=== PATIENT | male | born 1965 | race Caucasian/White ===

== ENCOUNTER 2021-07-20 10:56 | Outpatient (CLI) | payer OTHER, SELFPAY ==
[2021-07-20 18:49] LABS: Add Urine Microscopic? YES; Appearance Urine Clear (Clear); Bilirubin Urine Negative (Negative); Blood Urine Negative (Negative); Color Urine Yellow (Yellow); Glucose Urine UA Negative (Negative); Ketones Urine Negative (Negative); Leukocyte Esterase Ur Negative LEU/UL (Negative); Mucus Urine Rare /lpf; Nitrate Urine Negative (Negative); Protein Urine Negative (Negative); RBC Urine 0-2 /hpf (0-2); Specific Grav Ur 1.015 (1.001-1.035); Urobilinogen Urine Negative mg/dL (<2.0); WBC Urine 0-3 /hpf
[2021-07-20 19:18] LABS: CRP 1.2 mg/dL (<1.0)
[2021-07-20 19:25] LABS: Creatinine Urine 112.5 mg/dL
[2021-07-20 19:27] LABS: MALB Creatinine Ratio 13.4 mg/g (0-30); Microalbumin Urine Random 15.1 mg/L (0-16.7)
[2021-07-20 19:41] LABS: Free T4 Free Thyroxine 1.04 ng/mL (0.78-2.19); Vitamin D 25 Hydroxy 51.5 ng/mL
[2021-07-20 20:22] LABS: Folic Acid > 20.0 ng/mL (2.76->20)
[2021-07-23 07:06] LABS: C-Peptide 3.72 ng/mL (0.80-3.85); FSH 9.3 mIU/mL (1.6-8.0); Prolactin 6.8 ng/mL (***); Triiodothyronine T3 Free 3.2 pg/mL (2.3-4.2)
[2021-07-23 11:41] LABS: T3 Reverse 13 ng/dL (8-25)
[2021-07-24 13:13] LABS: Testosterone Free 41.4 pg/mL (35.0-155.0); Testosterone Total 235 ng/dL (250-1100)
[2021-07-25 18:11] LABS: Estradiol, Ultrasensitive 22 pg/mL (< OR = 29)
== END 2021-07-20 10:57 | disposition home or self-care (01) ==
LOC: ANHBWCLAB 10:58
PROVIDERS: PCP Family Medicine; Visit Provider Family Medicine
DX: B35.1 Tinea unguium (principal); E66.9 Obesity, unspecified; G47.30 Sleep apnea, unspecified; K21.9 Gastro-esophageal reflux disease without esophagitis; R68.89 Other general symptoms and signs; R73.9 Hyperglycemia, unspecified; Z79.899 Other long term (current) drug therapy; Z82.62 Family history of osteoporosis; Z96.612 Presence of left artificial shoulder joint; N99.89 Other postprocedural complications and disorders of genitourinary system; G25.81 Restless legs syndrome; N20.2 Calculus of kidney with calculus of ureter
CPT/HCPCS: 36415; 81001; 82043; 82306; 82607; 82670; 82746; 83001; 84146; 84402; 84403; 84439; 84443; 84481; 84482; 84681; 86140

== ENCOUNTER 2021-08-23 11:48 | Outpatient (RCR) | payer OTHER, SELFPAY ==
[2021-08-23] MEDS: ACETAMINOPHEN 325 MG TABLET 650 MG PO (12:06)
[2021-08-23] MEDS: diphenhydrAMINE HCl CAP 25 MG CAPSULE PO (12:07)
[2021-08-23] MEDS: FAMOTIDINE 20 MG TABLET PO (12:07)
[2021-08-23 12:21] VITALS: BP 156/80; PULSE 83; RESP 18; TEMP 36.3; O2SAT 97
[2021-08-23 13:35] VITALS: BP 140/72; PULSE 78; RESP 20; O2SAT 98
--- NOTE | 2021-08-24 14:48 | PC.NURSE ---
Called patient to follow-up regarding COVID antibody infusion. Patient states he is feeling well today and denies any side effects at this time.
== END 2021-08-24 10:03 ==
LOC: AMCINF 11:48
PROVIDERS: PCP Family Medicine; Referring Provider Family Medicine; Visit Provider Internal Medicine Hematology & Oncology
DX: Z23 Encounter for immunization (principal); U07.1 COVID-19; I25.10 Atherosclerotic heart disease of native coronary artery without angina pectoris; E11.9 Type 2 diabetes mellitus without complications
CPT/HCPCS: A9270; M0245; Q0245

== ENCOUNTER 2021-09-20 07:47 | Outpatient (CLI) | payer OTHER, SELFPAY ==
[2021-09-20 19:37] LABS: Hematocrit 44.6 % (42.0-52.0); Hemoglobin 14.6 g/dL (14.0-18.0); Mean Corpuscular HGB Conc 32.7 g/dl (32-36); Mean Corpuscular Hemoglobin 30.2 pg (26-34); Mean Corpuscular Volume 92.1 fl (80-100); Platelet Count Result 256 k/mm3 (150-375); Red Blood Count 4.84 M/mm3 (4.6-6.20); Red Cell Distribution Width 13.2 % (11.5-14.5); White Blood Count 7.4 K/mm3 (4.5-10.0)
[2021-09-20 19:44] LABS: Alanine Aminotransferase 42 U/L (4-50); Albumin Level 4.6 g/dL (3.5-5.1); Alkaline Phosphatase 66 U/L (38-126); Anion Gap 11 mmol/L (8-16); Aspartate Amino Transferase 34 U/L (17-59); Bilirubin,Total 0.8 mg/dL (0.2-1.3); Blood Urea Nitrogen 13 mg/dL (9-20); Calcium 9.8 mg/dL (8.4-10.2); Carbon Dioxide 24 mmol/L (22-30); Chloride 98 mmol/L (98-107); Cholesterol 197 mg/dL (0-200); Estimated Glomerular Filt Rate 57; Glucose 86 mg/dL (65-110); HDL Direct 32 mg/dL; Potassium 3.8 mmol/L (3.4-5.0); Sodium 133 mmol/L (137-145); Triglycerides 170 mg/dL (<150)
[2021-09-20 19:55] LABS: LDL Cholesterol Direct 141 mg/dL
[2021-09-20 20:12] LABS: Prostate Specific Antigen 0.3 ng/mL (< OR = 4.0)
[2021-09-23 14:47] LABS: Testosterone Free 50.4 pg/mL (35.0-155.0); Testosterone Total 241 ng/dL (250-1100)
== END 2021-09-20 07:48 | disposition home or self-care (01) ==
PROVIDERS: PCP Family Medicine; Visit Provider Family Medicine
DX: E78.5 Hyperlipidemia, unspecified (principal); R79.89 Other specified abnormal findings of blood chemistry
CPT/HCPCS: 36415; 80053; 80061; 83036; 84153; 84402; 84403; 85027; G0103

== ENCOUNTER 2021-11-29 00:03 | Emergency (ER) | payer OTHER, SELFPAY ==
--- NOTE | ~2021-11-29 | CT_ITS ---
EXAMINATION: CT abdomen pelvis wo con EXAM DATE: 11/29/2021 00:54 INDICATION: Flank pain, RLQ Pain X 3 Days. TECHNIQUE: Spiral CT of the abdomen and pelvis was performed without contrast. Axial, coronal and sag ittal images were reviewed. The dose-length product (DLP) for this examination was 780.19 mGy-cm. T he exposure was tailored according to patient size (auto mA exposure control), and iterative reconstr uction (ASIR) was used as additional dose reduction technique. Comparison is made to prior examinatio n from 10/29/2019. FINDINGS: There is a 5 mm stone in the distal aspect of the right ureter, 1 cm from the ureterovesicu lar junction. There is mild right-sided hydroureteronephrosis. Additional bilateral nephrolithiasis, with a 5 mm right inferior calyceal stone and multiple other punctate bilateral calyceal stones. The prostate is unremarkable. The bladder is unremarkable. The liver, spleen, adrenal glands and pancr eas are unremarkable. Gallbladder is unremarkable. No biliary obstruction. There is no retroperito buster or pelvic lymphadenopathy. The appendix is normal. There is moderate sigmoid colonic diverticulosis. There is no adjacent infla mmatory change to suggest diverticulitis. The stomach and small bowel are unremarkable. There is ex pected amount of colonic stool. No free intraperitoneal gas. The heart is normal in size. There are no pericardial or pleural effusions. The lung bases are unremarkable. There are no osteoblastic or osteolytic lesions identified. There is chronic bilateral L5 spondylolysis without spondylolisthe sis. IMPRESSION: 1. Right distal ureteral 5 mm stone, mild hydroureteronephrosis. consultants would appreciate bas sherie KUB. 2. Bilateral nephrolithiasis. 3. Sigmoid diverticulosis. 4. L5 spondylolysis. Reviewed, dictated and finalized at location A. 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 Right distal ureteral 5 mm stone, mild hydroureteronephrosis. 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 2. Bilateral nephrolithiasis. 3. Sigmoid diverticulosis. 4. L5 spondylolysis.
[2021-11-29 00:17] VITALS: BP 156/86; PULSE 96; RESP 18; TEMP 37.1; O2SAT 97
[2021-11-29 00:43] LABS: Basophils Percent Auto 0.4 % (0.2-1.2); Eosinophils Absolute Auto 0.1 K/mm3 (0-0.3); Eosinophils Percent Auto 1.5 % (0-4.4); Hematocrit 44.2 % (42.0-52.0); Immature Granulocyte Absolute 0.02 K/mm3 (0.00-0.031); Immature Granulocyte Percent A 0.2 % (0-0.5); Lymphocytes Percent Auto 20.7 % (18.3-44.2); Mean Corpuscular HGB Conc 33.9 g/dl (32-36); Mean Corpuscular Hemoglobin 30.2 pg (26-34); Mean Corpuscular Volume 89.1 fl (80-100); Mean Platelet Volume 9.5 fl (7.4-10.4); Monocytes Absolute Auto 0.6 K/mm3 (0.1-0.6); Monocytes Percent Auto 7.7 % (2.6-8.5); Neutrophils Absolute Auto 5.7 K/mm3 (1.3-6.7); Neutrophils Percent Auto 69.5 % (45.5-73.1); Platelet Count Result 258 k/mm3 (150-375); Red Blood Count 4.96 M/mm3 (4.6-6.20); Red Cell Distribution Width 12.7 % (11.5-14.5); White Blood Count 8.2 K/mm3 (4.5-10.0)
[2021-11-29 00:55] LABS: Alanine Aminotransferase 41 U/L (4-50); Albumin Level 4.2 g/dL (3.5-5.1); Alkaline Phosphatase 54 U/L (38-126); Anion Gap 11 mmol/L (8-16); Aspartate Amino Transferase 38 U/L (17-59); Bilirubin,Total 0.4 mg/dL (0.2-1.3); Blood Urea Nitrogen 16 mg/dL (9-20); Calcium 9.4 mg/dL (8.4-10.2); Carbon Dioxide 24 mmol/L (22-30); Chloride 104 mmol/L (98-107); Estimated CRCL calculation 83 ml/min; Estimated Glomerular Filt Rate > 60; Glucose 171 mg/dL (65-110); Potassium 3.4 mmol/L (3.4-5.0); Sodium 139 mmol/L (137-145)
--- NOTE | 2021-11-29 01:00 | ED.GENADULT ---
HPI - General Adult General Chief complaint: Urogenital-Male Stated complaint: R flank pain Time Seen by Provider: 11/29/21 00:22 Source: patient, RN notes reviewed and old records reviewed Limitations: no limitations History of Present Illness HPI narrative: 56-year-old male with a history of kidney stones presents to the emergency department complaining of right lower quadrant pain that has been intermittent since . Patient states the pain acutely worsened at 10 PM last night. Patient does describe associated nausea without vomiting. Patient has previously had follow-up with Dr. Mixon. Suspects his last kidney stone was 2 years ago Related Data Home Medications Medication Instructions Recorded Confirmed aspirin 81 mg tablet,delayed 81 mg PO DAILY 11/05/19 12/03/21 release multivitamin 1 tablet PO DAILY 11/05/19 12/03/21 Allergies Allergy/AdvReac Type Severity Reaction Status Date / Time No Known Allergies Allergy Verified 12/03/21 09:03 Review of Systems Review of Systems: CONSTITUTIONAL: Denies fever, chills, or sweats. EYES: Denies visual changes, redness, or discharge. ENT: Denies rhinorrhea, congestion, sore throat, or otalgia. CARDIOVASCULAR: Denies chest pain, palpitations, or edema. RESPIRATORY: Denies cough or dyspnea. GASTROINTESTINAL: RLQ pain, associated n/v GENITOURINARY: Denies dysuria or hematuria. SKIN: Denies rash or itching. MUSCULOSKELETAL: Denies back pain, joint pain, or myalgia. NEUROLOGIC: Denies headache, numbness, or weakness. All systems reviewed & are unremarkable except as noted in HPI and below PMFSH Past Medical History Medical History Controlled type 2 diabetes mellitus without complication Erectile dysfunction GERD (gastroesophageal reflux disease) Kidney stones Seasonal allergies Sleep apnea Umbilical hernia Surgical History Surgical History History of left shoulder replacement (~2017) History of lithotripsy (~2019) Family History Family History Father Family history of malignant neoplasm Other Family history of kidney stones Hypertension Social History Social History Smoking status: Never smoker Second hand tobacco smoke exposure: Yes Alcohol intake: current Drinks per week: 6 Substance use: never Substance use type: does not use Additional living arrangements comments: and Mother Gender identity (if verbalized by the patient): Male Sexual Orientation (if Verbalized by the Patient): Straight or Heterosexual Spiritual care concerns: No Agree to blood products: Yes Exam Narrative: APPEARANCE: Well appearing, no pain, no distress, well-nourished. HEAD: normocephalic, atraumatic. EYES: PERRLA/EOMI, conjunctivae clear. NOSE: Normal no drainage RESPIRATORY: Airway patent, respirations nonlabored. Clear to auscultation bilaterally, no rales, rhonchi, wheezing. CARDIOVASCULAR: Regular rate and rhythm without murmurs rubs or gallops. ABDOMINAL: RLQ tenderness to palpation MUSCULOSKELETAL: Moves all extremities. Strength/ROM intact, No edema, No calf tenderness. NEURO: Alert. Cranial nerves II through XII intact. Good gait. Good coordination SKIN: Warm, dry. Normal Color PSYCHIATRIC: Normal affect/mood. Course Reevaluation(s) Reevaluation #1: Patient was updated on the results of his labs and CT scan. CT scan did show evidence of a stone. Urine showed evidence of blood but no evidence of an underlying urinary tract infection. On reevaluation patient states his pain is significantly improved. Patient is interested in going home and was educated on reasons to return to the emerge department. Patient will have close follow-up with his urologist. All questions concerns were addressed. Patient was in no distress
[2021-11-29] MEDS: HYDROmorphone HCL INJ (*CRX) 1 MG/ML SYR IV PUSH (01:04)
[2021-11-29] MEDS: ONDANSETRON INJ 4 MG/2 ML VIAL IV PUSH (01:04)
[2021-11-29 01:05] LABS: Add Urine Microscopic? YES; Appearance Urine Clear (Clear); Bacteria Urine Trace /hpf; Bilirubin Urine Negative (Negative); Blood Urine 2+ (Negative); Color Urine Yellow (Yellow); Glucose Urine UA Negative (Negative); Ketones Urine Negative (Negative); Leukocyte Esterase Ur Negative LEU/UL (Negative); Mucus Urine Rare /lpf; Nitrate Urine Negative (Negative); Protein Urine Negative (Negative); RBC Urine 51-75 /hpf (0-2); Specific Grav Ur 1.015 (1.001-1.035); Squamous Epithelial Cell Urine Rare /hpf (Few); Urobilinogen Urine Negative mg/dL (<2.0)
[2021-11-29] MEDS: TAMSULOSIN HCL 0.4 MG CAPSULE PO (01:51)
[2021-11-29] MEDS: HYDROcodone/acetaminophen (*CRX) 5-325 MG TABLET 1 TAB PO (02:16)
[2021-11-29 02:30] VITALS: BP 147/82; PULSE 87; RESP 16; TEMP 36.9; O2SAT 99
== END 2021-11-29 02:43 | disposition home or self-care (01) ==
PROVIDERS: Emergency Provider Emergency Medicine; PCP Family Medicine
DX: N13.2 Hydronephrosis with renal and ureteral calculous obstruction (principal); E11.9 Type 2 diabetes mellitus without complications; K21.9 Gastro-esophageal reflux disease without esophagitis; G47.30 Sleep apnea, unspecified; Z87.442 Personal history of urinary calculi; Z96.612 Presence of left artificial shoulder joint; K57.30 Diverticulosis of large intestine without perforation or abscess without bleeding; M43.06 Spondylolysis, lumbar region; Z79.82 Long term (current) use of aspirin; Z79.899 Other long term (current) drug therapy
CPT/HCPCS: 36415; 74176; 80053; 81001; 85025; 87086; 96374; 96375; 99284; A9270; J1170; J2405

== ENCOUNTER 2021-12-03 02:18 | Day surgery (SDC) | payer OTHER, SELFPAY ==
[2021-12-01 12:51] VITALS: BMI 37.6
--- NOTE | 2021-12-01 13:01 | PC.NURSE ---
Report to the Outpatient Waiting Room, entrance under the green pavilion located off [facility], at time 0730 on date 12/03/21. OR Time: 0930. - You and your visitor will be asked a series of questions to screen for COVID 19 for your protection. - A mask is required within the hospital. One visitor will be allowed to accompany the patient into the hospital. Patients visitor will be instructed to remain with patient at all times or leave the building. We will allow the visitor to come back to the postoperative area when patient is ready. Preoperative COVID Testing Requirements: E-MAILING CARD No COVID Test needed if: (proof is required; if not received patient will have Rapid Test prior to entry) - Patient has received COVID Vaccine at least 14 days prior to procedure date or - Patient has positive COVID test result within last 90 days of surgery date. COVID Test needed if above criteria is not met Patients may have clear liquids (water, carbonated beverages, clear teas, apple juice) until 3 hours prior to surgery with a maximum of 20 ounces. - No food from midnight until time of surgery Take the following medications with a SIP of water the morning of surgery: NONE Medications to discontinue per physician: VITAMINS Date to take last dose: NONE UNTIL AFTER SURGERY STOP IBUPROFEN AND ASPIRIN PER DR. CHO Please no make-up, nail swazi, hairspray, perfume, deodorant, or body powder the day of surgery. No jewelry (including any body piercings) or valuables the day of surgery, leave them at home. Please take a shower or bath the night before, or the morning of, surgery with an antibacterial soap. Wear comfortable, loose fitting clothing. - Jewelry must be removed prior to entering the operating room. Rings and piercings that are not removed may be cut off. - The hospital will not accept responsibility for valuables. - Please leave all valuables, including medications, at home the day of surgery. If you are going home after surgery, a licensed pick up driver must drive you home. - NO public transportation without another adult. - We recommend that an adult stay with you for 24 hours following discharge. - We also recommend that you do not drive, make important decision, drink alcoholic beverages, or take any drugs that were not prescribed by your health care provider for at least 24 hours after your discharge time. Follow any additional instructions given to you from your surgeon. Telephone instructions given to LILLIAN ARROYO and asked if any additional questions and then verbalized understanding. Patient advised to call surgeon office or pre surgery nurse liaison [phone] if any additional questions.
[2021-12-03] VITALS (9 sets, daily range): BP systolic 125–153; BP diastolic 81–97; PULSE 76–91; RESP 15–18; TEMP 36.3–36.5; O2SAT 94–98
--- NOTE | ~2021-12-03 | XR_ITS ---
EXAMINATION: XR abdomen/kub 1V DATE: 12/03/2021 07:45 INDICATION: Right ureteral stone. TECHNIQUE: A supine view of the abdomen on 2 radiographs was obtained. COMPARISON: CT abdomen and pelvis 11/29/2021 FINDINGS: There are no dilated loops of bowel. There are phleboliths in the pelvis. There is a 6 mm s tone in right kidney lower pole. IMPRESSION: 1. 6 mm right kidney stone. Reviewed, dictated and finalized at location A. OGRAPHY SUPERVISOR IMPRESSION: 1. 6 mm right kidney stone.
--- NOTE | 2021-12-03 06:04 | ECG_ITS ---
Measurements Intervals [place] Rate: 85 P: 56 CO: 190 QRS: 10 QRSD: 73 T: 39 QT: 346 QTc: 413 Interpretive Statements SINUS RHYTHM INCOMPLETE RIGHT BUNDLE BRANCH BLOCK BASELINE ARTIFACT- I, III, AVR, AVL, AVF, V1-V2 BORDERLINE ECG Electronically Signed On 12-03-2021 8:25:56 CHISEL MORTISER OPERATOR by José Manuel Martinez D.O.
--- NOTE | 2021-12-03 06:48 | WPDHPUPDATE1 ---
History and Physical Update Update Date/Time: 12/03/21 06:48 History and Physical has been reviewed, including an updated exam of the patient. There are NO changes in the patient's condition. Risks, benefits, and alternatives have been discussed and questions answered. Patient agrees to proceed with procedure.
--- NOTE | 2021-12-03 07:55 | WPDANESEPPF ---
Anes - Initial Pre Proc Eval Procedure: Operation Date: 12/03/21 09:30 Proposed Procedures p Cystoscopy, Right Ureteroscopy, Right Retrograde Pyelogram, Stone Extraction, Stent Placement, - Tevin Mixon MD s Possible Holmium Laser Procedure - Tevin Mixon MD Date/Time: 12/03/21 07:55 Surgeon: Tevin Mixon MD Pre Op Diagnosis: right ureteral kidney stone Patient Data Age: 56 Gender: M Height: 1.8 m Weight: 122.47 kg Allergies Allergy/AdvReac Type Severity Reaction Status Date / Time No Known Allergies Allergy Verified 12/01/21 12:47 Home Medications Medication Instructions Recorded Confirmed Type aspirin 81 mg tablet,delayed 81 mg PO DAILY 11/05/19 12/01/21 History release multivitamin 1 tablet PO DAILY 11/05/19 12/01/21 History sildenafil 100 mg tablet See Rx Instructions .ROUTE 11/20/20 12/01/21 Rx .COMPLEX #10 tablet ibuprofen 800 mg tablet 800 mg PO TID PRN #90 tablet 05/06/21 12/01/21 Rx syringe with needle, safety 3 mL #12 ea 08/09/21 09/29/21 Rx 25 gauge x 1 needle (disp) 18 G 18 gauge x 1 #100 ea 09/20/21 09/29/21 Rx testosterone cypionate 200 mg/mL 200 mg IM Q14D #10 ml 09/29/21 12/01/21 Rx intramuscular oil semaglutide 1 mg/dose (4 mg/3 mL) 1 mg SUBCUT WEEKLY 90 Days #9.75 ml 10/14/21 12/01/21 Rx subcutaneous pen injector needle (disp) 25 gauge 25 gauge x #12 ea 11/07/21 Rx 1 hydrocodone-acetaminophen 1 tablet PO Q8H PRN #14 tablet 11/29/21 12/01/21 Rx ondansetron 4 mg PO Q6H PRN #14 tablet 11/29/21 12/01/21 Rx tamsulosin [Flomax] 0.4 mg PO DAILY 5 Days #5 cap 11/29/21 12/01/21 Rx Patient hx anesthesia problems: none Family hx anesthesia problems: none Results Review: All pre-operative results and documents have been reviewed as part of the pre-operative evaluation. [facility] Past Medical History Medical History Controlled type 2 diabetes mellitus without complication Erectile dysfunction GERD (gastroesophageal reflux disease) Kidney stones Seasonal allergies Sleep apnea Umbilical hernia Surgical History Surgical History History of left shoulder replacement (~2017) History of lithotripsy (~2019) Family History Family History Father Family history of malignant neoplasm Other Family history of kidney stones Hypertension Social History Social History Smoking status: Never smoker Second hand tobacco smoke exposure: Yes Alcohol intake: current Drinks per week: 6 Substance use: never Substance use type: does not use Living arrangements: with family Additional living arrangements comments: and Mother Gender identity (if verbalized by the patient): Male Sexual Orientation (if Verbalized by the Patient): Straight or Heterosexual Spiritual care concerns: No Agree to blood products: Yes Anes - Eval Final PreProcedure Day of Procedure 12/03/21 07:55 Patient weight: obese Heart: regular rate and rhythm Airway: Mallampati scale class III Neurological: alert and oriented Last oral intake: >/= 8 hours ASA classification: III Emergent: no Anesthetic plan: proceed Anesthesia type and monitoring: general LMA and standard monitoring Results Review: All pre-operative results and documents have been reviewed as part of the pre-operative evaluation. Informed Consent: The patient's anesthetic plan and its attendant risks and benefits were discussed with the patient/family/POA. Questions were solicited and answers provided to the satisfaction of the patient/family/POA.
[2021-12-03] MEDS: LACTATED RINGERS 1,000 ML 30 ML IV CONT ×2 (08:15→10:55)
[2021-12-03 08:36] LABS: Glucose Point of Care 117 mg/dl (65-105)
[2021-12-03 08:52] LABS: INR 1.1; Prothrombin Time 13.6 Seconds (11.1-14.7)
[2021-12-03 08:53] LABS: Partial Thromboplastin Time 33.6 SECONDS (22.3-36.8)
[2021-12-03] MEDS: ceFAZolin 3 GM/D5W 100 ML 100 ML IVPB (09:57)
--- NOTE | 2021-12-03 10:23 | W.PM.PROC2 ---
Procedure Note - Detailed Date of Procedure 12/03/21 Pre-op Diagnosis Right distal ureteral stone Right renal stone Post-op Diagnosis same Procedure Performed 1. Cystoscopy, right ureteroscopy with stone extraction 2. Right ESWL Surgeon Tevin Mixon MD Anesthesia general Description of Procedure The patient was brought to the operative suite where he is prepped and draped in a routine sterile fashion while in the dorsal lithotomy position after the uneventful induction of a general LMA anesthetic. A 19F rigid cystoscope was placed in the bladder. There are no urethral strictures. His prostatic urethra measures, approximately, 2cm with no median lobe enlargement. The bladder mucosa was endoscopically normal without hyperemia or neoplasm. There was a single, orthotopic ureteral orifice bilaterally. A 0.035 glidewire was advanced into the right renal pelvis under fluoroscopy. The distal ureter was dilated with an 8F/10F ureteral dilator. Ureteroscopy was undertaken with a short, tapered, semi-rigid ureteroscope and the stone was extracted with ease using a 1.9F Escape disposable stone basket. Due to the ease of this manipulation I opted not to place a ureteral stent. He was then placed in the supine position on the Dornier lithotripsy table. The focal point of the lithotripter was placed at a 6mm right renal calculus. A total of 2500 shocks were delivered at a power setting of 4. There appeared to be good fragmentation of the stone. The patient tolerated the procedure well and was taken to the recovery room in good condition. Drains No Packing No Pathology none sent Complications No immediate complications Condition stable Disposition PACU
[2021-12-03] MEDS: KETOROLAC 30 MG/ML VIAL (*BKC) IV PUSH (10:49)
[2021-12-03 11:17] LABS: Glucose Point of Care 104 mg/dl (65-105)
== END 2021-12-03 13:06 | disposition home or self-care (01) ==
PROVIDERS: Visit Provider Urology
PROC: (CPT 52352; principal; 2021-12-03 09:30)
PROC: (CPT 50590; 2021-12-03 09:30)
DX: N20.2 Calculus of kidney with calculus of ureter (principal); E11.9 Type 2 diabetes mellitus without complications; K21.9 Gastro-esophageal reflux disease without esophagitis; G47.30 Sleep apnea, unspecified; N52.9 Male erectile dysfunction, unspecified; Z79.82 Long term (current) use of aspirin; Z79.899 Other long term (current) drug therapy; E66.9 Obesity, unspecified; Z68.35 Body mass index [BMI] 35.0-35.9, adult
CPT/HCPCS: 50590; 52352; 36415; 74018; 82365; 82948; 85610; 85730; 88300; 93005; A9270; C1769; J0690; J1885; J2250; J2405; J2704; J3010; J7120; Q9966

== ENCOUNTER 2022-05-04 07:28 | Outpatient (CLI) | payer OTHER, SELFPAY ==
[2022-05-04 19:42] LABS: Basophils Percent Auto 0.6 % (0.2-1.2); Eosinophils Absolute Auto 0.2 K/mm3 (0-0.3); Eosinophils Percent Auto 2.1 % (0-4.4); Hematocrit 48.7 % (42.0-52.0); Hemoglobin 15.5 g/dL (14.0-18.0); Immature Granulocyte Absolute 0.02 K/mm3 (0.00-0.031); Immature Granulocyte Percent A 0.3 % (0-0.5); Lymphocytes Absolute Auto 1.78 K/mm3 (0.9-3.2); Lymphocytes Percent Auto 24.5 % (18.3-44.2); Mean Corpuscular HGB Conc 31.8 g/dl (32-36); Mean Corpuscular Hemoglobin 29.7 pg (26-34); Mean Corpuscular Volume 93.3 fl (80-100); Mean Platelet Volume 10.1 fl (7.4-10.4); Monocytes Absolute Auto 0.6 K/mm3 (0.1-0.6); Monocytes Percent Auto 8.8 % (2.6-8.5); Neutrophils Absolute Auto 4.6 K/mm3 (1.3-6.7); Neutrophils Percent Auto 63.7 % (45.5-73.1); Platelet Count Result 247 k/mm3 (150-375); Red Blood Count 5.22 M/mm3 (4.6-6.20); Red Cell Distribution Width 13.4 % (11.5-14.5); White Blood Count 7.3 K/mm3 (4.5-10.0)
[2022-05-04 19:50] LABS: Alanine Aminotransferase 45 U/L (6-50); Albumin Level 4.4 g/dL (3.5-5.1); Alkaline Phosphatase 58 U/L (38-126); Anion Gap 9 mmol/L (8-16); Aspartate Amino Transferase 57 U/L (17-59); Bilirubin,Total 0.6 mg/dL (0.2-1.3); Blood Urea Nitrogen 19 mg/dL (9-20); Calcium 9.9 mg/dL (8.4-10.2); Carbon Dioxide 27 mmol/L (22-30); Chloride 103 mmol/L (98-107); Estimated Glomerular Filt Rate 57; Glucose 110 mg/dL (65-110); Potassium 4.2 mmol/L (3.4-5.0); Sodium 139 mmol/L (137-145)
[2022-05-04 20:05] LABS: Hemoglobin A1C 5.8 % (<5.7)
[2022-05-04 20:19] LABS: Prostate Specific Antigen 0.5 ng/mL (< OR = 4.0)
[2022-05-04 20:38] LABS: Microalbumin Urine Random 10.1 mg/L (0-16.7)
[2022-05-04 20:40] LABS: Creatinine Urine 103.3 mg/dL; MALB Creatinine Ratio 9.8 mg/g (0-30)
[2022-05-08 15:55] LABS: Testosterone Total 630 ng/dL (250-1100)
[2022-05-11 16:12] LABS: Estrogen 393.1 pg/mL (60-190)
== END 2022-05-04 07:29 | disposition home or self-care (01) ==
LOC: ANHBWCLAB 07:29
PROVIDERS: PCP Family Medicine; Visit Provider Family Medicine
DX: R79.89 Other specified abnormal findings of blood chemistry (principal); E11.9 Type 2 diabetes mellitus without complications
CPT/HCPCS: 36415; 80053; 82043; 82672; 83036; 84153; 84402; 84403; 85025

== ENCOUNTER 2022-08-30 08:00 | Outpatient (NON) | payer OTHER, SELFPAY | END 2022-08-30 08:01 | disposition home or self-care (01) | LOC: ANHLAB 08-31 08:16 | PROVIDERS: PCP Family Medicine; Visit Provider Internal Medicine Gastroenterology | DX: K63.5 Polyp of colon (principal) | CPT/HCPCS: 88305 ==

== ENCOUNTER 2022-08-30 10:45 | Day surgery (SDC) | payer OTHER, SELFPAY ==
[2022-04-28 12:09] VITALS: BMI 35.0
[2022-08-17 10:26] VITALS: BMI 37.8
[2022-08-30 11:00] VITALS: BP 158/113; PULSE 99; RESP 20; TEMP 37.1; O2SAT 97
[2022-08-30 11:19] LABS: Glucose Point of Care 97 mg/dl (65-105)
--- NOTE | 2022-08-30 12:12 | WPDANESEPPF ---
Anes - Initial Pre Proc Eval Procedure: Operation Date: 08/30/22 12:30 Proposed Procedures p Screening Colonoscopy - Corona Rice MD Date/Time: 08/30/22 12:12 Surgeon: Corona Rice MD Pre Op Diagnosis: Neoplasm Screening Patient Data Age: 57 Gender: M Height: 1.8 m Weight: 118.1 kg Allergies Allergy/AdvReac Type Severity Reaction Status Date / Time No Known Allergies Allergy Verified 08/30/22 11:04 Home Medications Medication Instructions Recorded Confirmed Type aspirin 81 mg tablet,delayed 81 mg PO DAILY 11/05/19 08/30/22 History release (Adult Low Dose Aspirin) multivitamin 1 tablet PO DAILY 11/05/19 08/30/22 History sildenafil 100 mg tablet See Rx Instructions .Route 11/20/20 08/17/22 Rx .COMPLEX #10 tabs syringe with needle, safety 3 mL #12 ea 08/09/21 12/03/21 Rx 25 gauge x 1 (BD Integra Syringe) needle (disp) 18 G 18 gauge x 1 #100 ea 09/20/21 12/03/21 Rx (BD Regular Bevel [place]) semaglutide 1 mg/dose (4 mg/3 mL) 1 mg (0.75 mL) subcut WEEKLY 3 10/14/21 08/30/22 Rx subcutaneous pen injector (Ozempic) months #9.75 mL needle (disp) 25 gauge 25 gauge x #12 ea 11/07/21 12/03/21 Rx 1 (BD PrecisionGlide) pseudoephedrine-guaifenesin ER 120 1 tablet PO Q12H PRN cold symptoms 04/05/22 08/30/22 Rx mg-1,200 mg tab,extend release #20 tabs 12hr (Mucinex D Maximum Strength) topiramate 25 mg tablet 25 mg PO DAILY #90 tabs 06/08/22 08/30/22 Rx ibuprofen 800 mg tablet 800 mg PO TID PRN pain #90 tabs 08/15/22 08/30/22 Rx testosterone cypionate 200 mg/mL 200 mg IM Q14D #10 mL 08/23/22 08/30/22 Rx intramuscular oil Laboratory Tests 08/30/22 11:16 POC Capillary Glucose 97 mg/dl mg/dl (65-105) Patient hx anesthesia problems: none Family hx anesthesia problems: none Results Review: All pre-operative results and documents have been reviewed as part of the pre-operative evaluation. [facility] Past Medical History Medical History Controlled type 2 diabetes mellitus without complication Erectile dysfunction GERD (gastroesophageal reflux disease) Kidney stones Seasonal allergies Sleep apnea Umbilical hernia Surgical History Surgical History History of left shoulder replacement (~2017) History of lithotripsy (~2019) Family History Family History Father Family history of malignant neoplasm Other Family history of kidney stones Hypertension Social History Social History Smoking status: Never smoker Second hand tobacco smoke exposure: Yes Alcohol intake: current Drinks per week: 6 Substance use: never Substance use type: does not use Living arrangements: with family Additional living arrangements comments: and Mother Gender identity (if verbalized by the patient): Male Sexual Orientation (if Verbalized by the Patient): Straight or Heterosexual Spiritual care concerns: No Agree to blood products: Yes Anes - Eval Final PreProcedure Day of Procedure 08/30/22 12:12 Patient weight: obese Heart: regular rate and rhythm Lungs: clear to auscultation Airway: Mallampati scale class II and class III Neurological: alert and oriented Last oral intake: >/= 8 hours ASA classification: III Emergent: no Anesthetic plan: proceed Anesthesia type and monitoring: general GIVS and standard monitoring Results Review: All pre-operative results and documents have been reviewed as part of the pre-operative evaluation. Informed Consent: The patient's anesthetic plan and its attendant risks and benefits were discussed with the patient/family/POA. Questions were solicited and answers provided to the satisfaction of the patient/family/POA.
[2022-08-30] MEDS: LACTATED RINGERS 1,000 ML 150 ML IV CONT (12:27)
--- NOTE | 2022-08-30 12:32 | PM.HPGS ---
History of Present Illness History of Present Illness Consent: Risks, benefits, and alternatives have been discussed and questions answered. Patient agrees to proceed with procedure. Chief complaint: Neoplasm Screening Narrative: Pedro Luis Barksdale is a 57 year old male with colon polyps 3 years ago Review of Systems Constitutional: Constitutional: Denies headache(s) and Denies weakness Eyes: Eyes: Denies blurry vision ENT: Reports Normal hearing present, Denies headache(s) and Denies neck pain Cardiovascular: Cardiovascular: Denies chest pain and Denies dyspnea Respiratory: Respiratory: Denies dyspnea Gastrointestinal: Gastrointestinal: Reports no additional gastrointestinal complaints Genitourinary: Genitourinary: Denies dysuria Musculoskeletal: Musculoskeletal: Denies neck pain Integumentary/Breasts: Skin/Breast: Denies dry skin Neurologic: Reports Normal hearing present, Denies headache(s) and Denies weakness Psychiatric: Psychiatric: Denies anxiety Endocrine: Endocrine: Denies change in body appearance Hematologic/Lymphatic: Hematologic/Lymphatic: Denies easy bleeding Allergic/Immunologic: Allergic/Immunologic: Denies urticaria PMF Past Medical History Medical History (Updated 08/30/22 @ 12:33 by Corona Rice MD) Adenomatous colon polyp Controlled type 2 diabetes mellitus without complication Erectile dysfunction GERD (gastroesophageal reflux disease) Kidney stones Seasonal allergies Sleep apnea Umbilical hernia Surgical History Surgical History History of left shoulder replacement (~2017) History of lithotripsy (~2019) Family History Family History Father Family history of malignant neoplasm Other Family history of kidney stones Hypertension Social History Social History Smoking status: Never smoker Second hand tobacco smoke exposure: Yes Alcohol intake: current Drinks per week: 6 Substance use: never Substance use type: does not use Living arrangements: with family Additional living arrangements comments: and Mother Gender identity (if verbalized by the patient): Male Sexual Orientation (if Verbalized by the Patient): Straight or Heterosexual Spiritual care concerns: No Agree to blood products: Yes Meds Home Medications and Allergies Home Medications Medication Instructions Recorded Confirmed Type aspirin 81 mg tablet,delayed 81 mg PO DAILY 11/05/19 08/30/22 History release (Adult Low Dose Aspirin) multivitamin 1 tablet PO DAILY 11/05/19 08/30/22 History sildenafil 100 mg tablet See Rx Instructions .Route 11/20/20 08/17/22 Rx .COMPLEX #10 tabs syringe with needle, safety 3 mL #12 ea 08/09/21 12/03/21 Rx 25 gauge x 1 (BD Integra Syringe) needle (disp) 18 G 18 gauge x 1 #100 ea 09/20/21 12/03/21 Rx (BD Regular Bevel [place]) semaglutide 1 mg/dose (4 mg/3 mL) 1 mg (0.75 mL) subcut WEEKLY 3 10/14/21 08/30/22 Rx subcutaneous pen injector (Ozempic) months #9.75 mL needle (disp) 25 gauge 25 gauge x #12 ea 11/07/21 12/03/21 Rx 1 (BD PrecisionGlide) pseudoephedrine-guaifenesin ER 120 1 tablet PO Q12H PRN cold symptoms 04/05/22 08/30/22 Rx mg-1,200 mg tab,extend release #20 tabs 12hr (Mucinex D Maximum Strength) topiramate 25 mg tablet 25 mg PO DAILY #90 tabs 06/08/22 08/30/22 Rx ibuprofen 800 mg tablet 800 mg PO TID PRN pain #90 tabs 08/15/22 08/30/22 Rx testosterone cypionate 200 mg/mL 200 mg IM Q14D #10 mL 08/23/22 08/30/22 Rx intramuscular oil Allergies Allergy/AdvReac Type Severity Reaction Status Date / Time No Known Allergies Allergy Verified 08/30/22 11:04 Vital Signs Vital Signs - 24 hr 08/30/22 11:00 Temperature 98.7 F Pulse Rate 99 Respiratory Rate 20 Blood Pressure 158/113 H Pulse Oximetry 97 Oxygen Delivery
[2022-08-30 12:52] VITALS: BP 121/85; PULSE 89; RESP 20; O2SAT 98
[2022-08-30 13:02] VITALS: BP 122/89; PULSE 90; RESP 20; O2SAT 99
--- NOTE | 2022-08-30 13:07 | WPDANESPN ---
Anes - Prog Note Post-Op Date/Time: 08/30/22 13:07 Cardiovascular status: normal Respiratory status: normal Airway patency: baseline Mental status: baseline Post-Op hydration status: normal Vital Signs: Last Vital Signs Temp 37.1 C 08/30/22 11:00 Pulse 99 08/30/22 11:00 Resp 20 08/30/22 11:00 BP 158/113 H 08/30/22 11:00 Pulse Ox 97 08/30/22 11:00 O2 Del Method Room Air 08/30/22 11:00 Pain Score (VAS): 0/10 I/O: Intake & Output 08/29/22 08/30/22 08/30/22 23:59 07:59 15:59 Intake Total 600 Balance 600 08/30/22 11:16 POC Capillary Glucose 97 Patient Feedback: Patient satisfied with anesthetic care.
[2022-08-30 13:12] VITALS: BP 133/87; PULSE 90; RESP 20; O2SAT 99
== END 2022-08-30 13:20 | disposition home or self-care (01) ==
PROVIDERS: PCP Family Medicine; Visit Provider Internal Medicine Gastroenterology
PROC: 0DJD8ZZ Inspection of Lower Intestinal Tract, Via Natural or Artificial Opening Endoscopic (ICD-10-PCS; CPT 45378; principal; 2022-08-30 12:30)
DX: D12.6 Benign neoplasm of colon, unspecified (principal)
CPT/HCPCS: 45380

== ENCOUNTER 2023-02-10 08:36 | Outpatient (CLI) | payer OTHER, SELFPAY ==
[2023-02-10 17:56] LABS: Hematocrit 50.8 % (42.0-52.0); Hemoglobin 16.5 g/dL (14.0-18.0); Mean Corpuscular HGB Conc 32.5 g/dl (32-36); Mean Corpuscular Volume 95.3 fl (80-100); Mean Platelet Volume 10.4 fl (7.4-10.4); Platelet Count Result 229 k/mm3 (150-375); Red Blood Count 5.33 M/mm3 (4.6-6.20); Red Cell Distribution Width 13.4 % (11.5-14.5); White Blood Count 8.6 K/mm3 (4.5-10.0)
[2023-02-10 18:37] LABS: Prostate Specific Antigen 0.4 ng/mL (< OR = 4.0)
[2023-02-10 18:41] LABS: Hemoglobin A1C 5.7 % (<5.7)
[2023-02-16 20:47] LABS: Testosterone Free 85.3 pg/mL (35.0-155.0); Testosterone Total 395 ng/dL (250-1100)
== END 2023-02-10 08:37 | disposition home or self-care (01) ==
PROVIDERS: PCP Family Medicine; Visit Provider Family Medicine
DX: Z00.00 Encounter for general adult medical examination without abnormal findings (principal); R79.89 Other specified abnormal findings of blood chemistry; K21.9 Gastro-esophageal reflux disease without esophagitis; G47.30 Sleep apnea, unspecified; E66.9 Obesity, unspecified; E11.9 Type 2 diabetes mellitus without complications; B35.1 Tinea unguium; N52.9 Male erectile dysfunction, unspecified; K42.9 Umbilical hernia without obstruction or gangrene; E78.5 Hyperlipidemia, unspecified
CPT/HCPCS: 36415; 83036; 84153; 84402; 84403; 85027; G0103

== ENCOUNTER 2023-02-20 15:12 | Emergency (ER) | payer OTHER, SELFPAY ==
--- NOTE | ~2023-02-20 | CT_ITS ---
EXAMINATION: CT abdomen pelvis wo con DATE: 02/20/2023 17:28 INDICATION: Right flank pain TECHNIQUE: Computed tomography (CT) of the abdomen and pelvis was performed without intravenous contr ast. Automated exposure control and iterative reconstruction technique were employed. The dose-length product was 1389.45 mGy-cm. COMPARISON: 11/29/2021 FINDINGS: Mild discoid atelectasis at the bilateral lower lungs. Heart size is normal. No pericardial or pleura l effusion. Liver, gallbladder, spleen, pancreas and bilateral adrenal glands are normal. Bilateral n ephrolithiasis with 3 stones ranging from 1 mm to 7 mm in the right kidney and and 14 stones in the l eft kidney appearing between 1 mm and 5 mm. No stones identified along either the left or right urete rs. No hydronephrosis. Bladder is normal. There is moderate colonic diverticulosis with a sigmoid pre dominance. There is no adjacent inflammatory change to suggest diverticulitis. Small bowel and appen rolanda are normal. No free intraperitoneal gas or fluid. No pathologically enlarged abdominal or pelvic lymphadenopathy. Bilateral L5 pars intra-articular is defects without spondylolisthesis. IMPRESSION: 1. Bilateral nonobstructing nephrolithiasis with no ureteral stones. 2. Diverticulosis. 3. Bilateral chronic L5 pars intra-articular is defects. Reviewed, dictated and finalized at location A.
[2023-02-20 15:14] VITALS: BP 166/91; PULSE 90; RESP 20; TEMP 36.7; O2SAT 97
[2023-02-20 15:30] VITALS: BP 111/58; PULSE 110; RESP 20; O2SAT 100
[2023-02-20 16:54] LABS: Basophils Percent Auto 0.3 % (0.2-1.2); Eosinophils Absolute Auto 0.1 K/mm3 (0-0.3); Eosinophils Percent Auto 1.6 % (0-4.4); Hematocrit 47.6 % (42.0-52.0); Hemoglobin 15.8 g/dL (14.0-18.0); Immature Granulocyte Absolute 0.03 K/mm3 (0.00-0.031); Immature Granulocyte Percent A 0.3 % (0-0.5); Lymphocytes Absolute Auto 2.41 K/mm3 (0.9-3.2); Lymphocytes Percent Auto 27.5 % (18.3-44.2); Mean Corpuscular HGB Conc 33.2 g/dl (32-36); Mean Corpuscular Hemoglobin 30.3 pg (26-34); Mean Corpuscular Volume 91.4 fl (80-100); Mean Platelet Volume 9.3 fl (7.4-10.4); Monocytes Absolute Auto 0.9 K/mm3 (0.1-0.6); Monocytes Percent Auto 10.7 % (2.6-8.5); Neutrophils Absolute Auto 5.2 K/mm3 (1.3-6.7); Neutrophils Percent Auto 59.6 % (45.5-73.1); Platelet Count Result 247 k/mm3 (150-375); Red Blood Count 5.21 M/mm3 (4.6-6.20); Red Cell Distribution Width 13.2 % (11.5-14.5); White Blood Count 8.8 K/mm3 (4.5-10.0)
[2023-02-20 16:58] LABS: Appearance Urine Cloudy (Clear); Bacteria Urine None Seen /hpf; Bilirubin Urine Negative (Negative); Blood Urine Negative (Negative); Color Urine Yellow (Yellow); Glucose Urine UA Negative (Negative); Ketones Urine Negative (Negative); Leukocyte Esterase Ur Negative LEU/UL (Negative); Nitrate Urine Negative (Negative); Non Pathogenic Casts 0-2; Protein Urine Negative (Negative); RBC Urine 0-2 /hpf (0-2); Squamous Epithelial Cell Urine None seen /hpf (Few); WBC Urine 0-5 /hpf; pH Urine 6.5 (5.0-9.0)
[2023-02-20 17:01] LABS: Add Urine Microscopic? YES
[2023-02-20] MEDS: SODIUM CHLORIDE 0.9% IV 1,000 ML 999 ML IV CONT (17:04)
[2023-02-20] MEDS: MORPHINE SULFATE (*CRX) 4 MG/ML INJ IV PUSH (17:05)
[2023-02-20 17:06] LABS: Alanine Aminotransferase 36 U/L (6-50); Albumin Level 4.2 g/dL (3.5-5.1); Alkaline Phosphatase 48 U/L (38-126); Anion Gap 8 mmol/L (8-16); Aspartate Amino Transferase 31 U/L (17-59); Bilirubin,Total 0.5 mg/dL (0.2-1.3); Blood Urea Nitrogen 17 mg/dL (9-20); Calcium 8.7 mg/dL (8.4-10.2); Carbon Dioxide 27 mmol/L (22-30); Chloride 103 mmol/L (98-107); Estimated CRCL calculation 89 ml/min; Estimated Glomerular Filt Rate > 60; Glucose 101 mg/dL (65-110); Potassium 3.9 mmol/L (3.4-5.0); Sodium 138 mmol/L (137-145)
--- NOTE | 2023-02-20 18:09 | ED.GENADULT ---
HPI - General Adult General Chief complaint: Urogenital-Male Stated complaint: kidney stone Time Seen by Provider: 02/20/23 16:29 History of Present Illness HPI narrative: Patient is a 57-year-old male who presents ER with right-sided flank pain. Intermittent over the the weekend. Endorses urinary frequency. Occasional nausea. No fevers or chills or sweats. No hematuria. Has history of recurrent stones in the past. Has been taking ibuprofen and Tylenol with hydrocodone at home. Related Data Home Medications Medication Instructions Recorded Confirmed aspirin 81 mg tablet,delayed 81 mg PO DAILY 11/05/19 08/30/22 release (Adult Low Dose Aspirin) multivitamin 1 tablet PO DAILY 11/05/19 08/30/22 Allergies Allergy/AdvReac Type Severity Reaction Status Date / Time No Known Allergies Allergy Verified 02/20/23 16:46 Review of Systems Review of Systems: All systems reviewed & are unremarkable except as noted in HPI and below Constitutional: Constitutional: Denies chills and Denies fever(s) Gastrointestinal: Gastrointestinal: Denies abdominal pain, Reports nausea and Denies vomiting Musculoskeletal: Musculoskeletal: Reports back pain, Denies arthralgias and Denies joint swelling Neurologic: Denies numbness and Denies weakness PMFSH Past Medical History Medical History (Updated 02/20/23 @ 18:22 by Rahul Robb MD) Adenomatous colon polyp Controlled type 2 diabetes mellitus without complication Erectile dysfunction GERD (gastroesophageal reflux disease) Kidney stones Seasonal allergies Sleep apnea Umbilical hernia Surgical History Surgical History History of left shoulder replacement (~2017) History of lithotripsy (~2019) Family History Family History Father Family history of malignant neoplasm Other Family history of kidney stones Hypertension Social History Social History Smoking status: Never smoker Second hand tobacco smoke exposure: Yes Alcohol intake: current Drinks per week: 3 Substance use: never Substance use type: does not use Living arrangements: with family Additional living arrangements comments: and Mother Occupation/Education: occupation Gender identity (if verbalized by the patient): Male Sexual Orientation (if Verbalized by the Patient): Straight or Heterosexual Spiritual care concerns: No Agree to blood products: Yes Exam Narrative: GENERAL: Well-appearing, well-nourished, and in no acute distress. HEAD: Normocephalic, atraumatic. EYES: PERRL and EOMI. CHEST: Clear to auscultation. No respiratory distress. HEART: Regular rate and rhythm. Normal peripheral pulses. ABDOMEN: Soft, nontender, nondistended. Right-sided CVA tenderness EXTREMITIES: Normal range of motion. No edema. SKIN: Warm, dry, no rash. NEURO: Alert and oriented x3. PSYCH: Normal mood and affect. Course Course Emergency Course: Patient resting comfortably. He seems to have passed a stone at some point given his pain and history. We will give a dose of Flomax here and will give him a prescription for when he is passing stones at home. Patient verbalized understanding treatment plan. Discharge home. Vital Signs Vital signs: Vital Signs Temperature 98.0 F 02/20/23 15:14 Pulse Rate 90 02/20/23 15:14 Respiratory Rate 20 02/20/23 15:14 Blood Pressure 166/91 H 02/20/23 15:14 Pulse Oximetry 97 02/20/23 15:14 Oxygen Delivery Room Air 02/20/23 15:14 Temperature 98.0 F 02/20/23 15:14 Pulse Rate 110 H 02/20/23 15:30 Respiratory Rate 20 02/20/23 15:30 Blood Pressure 111/58 L 02/20/23 15:30 Pulse Oximetry 100 02/20/23 15:30 Oxygen Delivery Room Air 02/20/23 15:14 Medical Decision Making Vital Signs Vital Signs: Vital Signs Temperature 98.0 F
[2023-02-20 18:34] VITALS: BP 132/79; PULSE 78; RESP 18; O2SAT 98
== END 2023-02-20 18:35 | disposition home or self-care (01) ==
PROVIDERS: Emergency Provider Emergency Medicine; PCP Family Medicine
DX: N20.0 Calculus of kidney (principal); R10.9 Unspecified abdominal pain; E11.9 Type 2 diabetes mellitus without complications; K21.9 Gastro-esophageal reflux disease without esophagitis; Z87.442 Personal history of urinary calculi; G47.30 Sleep apnea, unspecified
CPT/HCPCS: 36415; 74176; 80053; 81001; 85025; 96361; 96374; 99284; J2270; J7030

== ENCOUNTER → 2023-04-04 10:29 | Outpatient (CLI) | payer OTHER, SELFPAY ==
--- NOTE | ~2023-04-04 | XR_ITS ---
Supine and upright views of the abdomen Clinical history: Renal stones COMPARISON: 12/03/2021 Findings: Bowel gas pattern is nonspecific. No evidence for obstruction or free air. Bilateral renal stones are present, largest stone probably at the right lower pole measuring 5 mm.. Osseous structure s are intact. Impression: Bilateral renal stones, as detailed above. Reviewed, dictated and finalized at location . Impression: Bilateral renal stones, as detailed above.
== END ==
PROVIDERS: PCP Urology; Visit Provider Urology
DX: N20.0 Calculus of kidney (principal)
CPT/HCPCS: 74018

== ENCOUNTER 2023-04-05 09:04 | Outpatient (CLI) | payer OTHER, SELFPAY ==
--- NOTE | 2023-04-05 09:32 | ECG_ITS ---
Measurements Intervals [place] Rate: 89 P: 49 NV: 195 QRS: 31 QRSD: 81 T: 42 QT: 330 QTc: 404 Interpretive Statements SINUS RHYTHM NORMAL ECG COMPARED TO ECG 12/03/2021 08:15:08 NO SIGNIFICANT CHANGES Electronically Signed On 04-05-2023 12:00:39 CDT by Pal Griffith M.D.
[2023-04-05 10:02] LABS: Appearance Urine Clear (Clear); Bilirubin Urine Negative (Negative); Blood Urine Negative (Negative); Color Urine Yellow (Yellow); Glucose Urine UA Negative (Negative); Ketones Urine Negative (Negative); Leukocyte Esterase Ur Negative LEU/UL (Negative); Nitrate Urine Negative (Negative); Protein Urine Negative (Negative); Specific Grav Ur 1.011 (1.001-1.035); Urobilinogen Urine 0.2 mg/dL (<2.0)
[2023-04-05 10:06] LABS: Add Urine Microscopic? NO
[2023-04-05 10:14] LABS: INR 1.1; Prothrombin Time 14.8 Seconds (11.1-14.7)
[2023-04-05 10:15] LABS: Partial Thromboplastin Time 33.2 SECONDS (22.3-36.8)
== END 2023-04-05 09:05 | disposition home or self-care (01) ==
LOC: ANHSURGERY 09:09
PROVIDERS: PCP Family Medicine; Visit Provider Urology
DX: N20.1 Calculus of ureter (principal); E11.9 Type 2 diabetes mellitus without complications; Z01.818 Encounter for other preprocedural examination
CPT/HCPCS: 36415; 81003; 85610; 85730; 93005

== ENCOUNTER 2023-04-07 05:25 | Day surgery (SDC) | payer OTHER, SELFPAY ==
[2023-04-04 14:33] VITALS: BMI 40.1
--- NOTE | 2023-04-04 14:45 | PC.NURSE ---
Report to the Outpatient Waiting Room, entrance under the green pavilion located off [facility], at time 10:30 on date 04/07/23. Planned Procedure Time: 12:30. Time changes happen often and if your time is changed the preop area will call you the afternoon before. - You and your visitor will be asked to self-screen and do not enter if you have any COVID symptoms. - A mask is optional within the hospital at this time. Patients may have clear liquids (water, carbonated beverages, clear teas, apple juice) until 3 hours prior to surgery (9:30) with a maximum of 20 ounces. - No food from midnight until time of surgery Take the following medications with a SIP of water the morning of surgery: TOPIRAMATE DO NOT STOP ANY OF YOUR OTHER PRESCRIPTION MEDICATIONS PRIOR TO SURGERY ?EXCEPT THE FOLLOWING Medications to discontinue per physician: VITAMINS Date to take last dose: NO MORE UNTIL AFTER SURGERY Please no make-up, nail senegalese, hairspray, perfume, deodorant, or body powder the day of surgery. No jewelry (including any body piercings) or valuables the day of surgery, leave them at home. Please take a shower or bath the night before, or the morning of, surgery with an antibacterial soap. Wear comfortable, loose fitting clothing. - Jewelry must be removed prior to entering the operating room. Rings and piercings that are not removed may be cut off. - The hospital will not accept responsibility for valuables. - Please leave all valuables, including medications, at home the day of surgery. If you are going home after surgery, a licensed bobcat driver/labor must drive you home. - NO public transportation without another adult if you receive anesthesia. - We recommend that an adult stay with you for 24 hours following discharge. - We also recommend that you do not drive, make important decision, drink alcoholic beverages, or take any drugs that were not prescribed by your health care provider for at least 24 hours after your discharge time. Follow any additional instructions given to you from your surgeon. If you or anyone in your household have experienced Covid symptoms in the past week, please notify your surgeon or the nurse liaison at the phone number below for possible testing. Telephone instructions given to PT - LILLIAN ARROYO and asked if any additional questions and then verbalized understanding. Patient advised to call surgeon office or pre surgery nurse liaison [phone] if any additional questions.
[2023-04-07] VITALS (10 sets, daily range): BP systolic 115–157; BP diastolic 68–100; PULSE 74–98; RESP 12–18; TEMP 36.2–36.7; O2SAT 93–97
--- NOTE | ~2023-04-07 | XR_ITS ---
EXAMINATION: XR abdomen/kub 1V INDICATION: Bilateral nephrolithiasis TECHNIQUE: Supine views of the abdomen were obtained on 2 radiographs. COMPARISON: 04/04/2023; CT, 02/20/2023 FINDINGS: There is a 5 mm stone of the right kidney lower pole. Additional small kidney stones identi fied on the comparison CT are not well demonstrated. No stones are identified in the expected locatio n of the ureters or bladder. There are phleboliths of the left pelvis. The bowel gas pattern is perez l. The visualized lung bases are clear. IMPRESSION: 1. 5 mm stone of the right kidney lower pole. Reviewed, dictated and finalized at location B.
--- NOTE | 2023-04-07 06:23 | WPDHPUPDATE1 ---
History and Physical Update Update Date/Time: 04/07/23 06:23 History and Physical has been reviewed, including an updated exam of the patient. There are NO changes in the patient's condition. Risks, benefits, and alternatives have been discussed and questions answered. Patient agrees to proceed with procedure.
--- NOTE | 2023-04-07 08:38 | WPDANESEPPF ---
Anes - Initial Pre Proc Eval Procedure: Operation Date: 04/07/23 12:30 Proposed Procedures p Right Extracorporeal Shock Wave Lithotripsy - Tevin Mixon MD Date/Time: 04/07/23 08:38 Surgeon: Tevin Mixon MD Pre Op Diagnosis: right kidney stones Patient Data Age: 57 Gender: M Height: 1.78 m Weight: 127 kg Allergies Allergy/AdvReac Type Severity Reaction Status Date / Time No Known Allergies Allergy Verified 04/07/23 11:28 Home Medications Medication Instructions Recorded Confirmed Type multivitamin 1 tablet PO DAILY 11/05/19 04/04/23 History syringe with needle, safety 3 mL #12 ea 08/09/21 12/03/21 Rx 25 gauge x 1 (BD Integra Syringe) needle (disp) 18 G 18 gauge x 1 #100 ea 09/20/21 12/03/21 Rx (BD Regular Bevel [place]) needle (disp) 25 gauge 25 gauge x #12 ea 11/07/21 12/03/21 Rx 1 (BD PrecisionGlide) topiramate 25 mg tablet 25 mg PO DAILY #90 tabs 06/08/22 04/04/23 Rx semaglutide 2 mg/dose (8 mg/3 mL) 2 mg (0.75 mL) subcut WEEKLY #3 mL 01/30/23 04/07/23 Rx subcutaneous pen injector (Ozempic) testosterone cypionate 200 mg/mL 200 mg IM Q14D #10 mL 02/12/23 04/04/23 Rx intramuscular oil loratadine 10 mg tablet (Claritin) 10 mg PO DAILY 04/04/23 04/04/23 History omeprazole 20 mg tablet,delayed 20 mg PO DAILY 04/04/23 04/04/23 History release Patient hx anesthesia problems: post op nausea/vomiting Family hx anesthesia problems: none Results Review: All pre-operative results and documents have been reviewed as part of the pre-operative evaluation. [facility] Past Medical History Medical History (Updated 04/07/23 @ 08:39 by Ranjit Rey DO) Adenomatous colon polyp Controlled type 2 diabetes mellitus without complication Erectile dysfunction GERD (gastroesophageal reflux disease) Kidney stones PONV (postoperative nausea and vomiting) Seasonal allergies Sleep apnea Umbilical hernia Surgical History Surgical History History of left shoulder replacement (~2017) History of lithotripsy (~2019) Family History Family History Father Family history of malignant neoplasm Other Family history of kidney stones Hypertension Social History Social History Smoking status: Never smoker Second hand tobacco smoke exposure: Yes Alcohol intake: current Drinks per week: 5 Substance use: never Substance use type: does not use Living arrangements: with family Additional living arrangements comments: and Mother Occupation/Education: occupation Gender identity (if verbalized by the patient): Male Sexual Orientation (if Verbalized by the Patient): Straight or Heterosexual Spiritual care concerns: No Agree to blood products: Yes Anes - Eval Final PreProcedure Day of Procedure 04/07/23 08:38 Patient weight: morbidly obese Heart: regular rate and rhythm Lungs: clear to auscultation Airway: Mallampati scale class II Neurological: alert and oriented Last oral intake: >/= 8 hours ASA classification: III Emergent: no Anesthetic plan: proceed Anesthesia type and monitoring: general (Ozempic taken 6 days ago) ETT and standard monitoring Results Review: All pre-operative results and documents have been reviewed as part of the pre-operative evaluation. Informed Consent: The patient's anesthetic plan and its attendant risks and benefits were discussed with the patient/family/POA. Questions were solicited and answers provided to the satisfaction of the patient/family/POA.
[2023-04-07 11:19] LABS: Glucose Point of Care 94 mg/dl (65-105)
[2023-04-07] MEDS: LACTATED RINGERS 1,000 ML 30 ML IV CONT (11:27)
[2023-04-07] MEDS: ceFAZolin 3 GM/D5W 100 ML 100 ML IVPB (13:07)
--- NOTE | 2023-04-07 13:40 | W.PM.PROC2 ---
Procedure Note - Detailed Date of Procedure 04/07/23 Pre-op Diagnosis Right kidney stones Post-op Diagnosis Same Procedure Performed Right ESWL Surgeon Tevin Mixon MD Anesthesia General Description of Procedure The patient was brought to the operative suite where he was placed in the supine position on the [place] lithotripsy table. The focal point of the lithotripter was placed at a 7mm right renal calculus. A total of 2500 shocks were delivered at a power setting of 4. There appeared to be good fragmentation of the stone. The patient tolerated the procedure well and was taken to the recovery room in good condition. Drains No Packing No Pathology None sent Condition Stable
[2023-04-07 14:15] LABS: Glucose Point of Care 105 mg/dl (65-105)
[2023-04-07] MEDS: fentaNYL CITRATE INJ (*CRX) 100 MCG/2 ML VIAL 25 MCG IV PUSH ×4 (14:37→14:51)
[2023-04-07] MEDS: oxyCODONE HCL (*CRX) 5 MG TAB IR PO (15:28)
== END 2023-04-07 16:14 | disposition home or self-care (01) ==
PROVIDERS: PCP Family Medicine; Visit Provider Urology
PROC: (CPT 50590; principal; 2023-04-07 12:30)
DX: N20.0 Calculus of kidney (principal); E11.9 Type 2 diabetes mellitus without complications
CPT/HCPCS: 50590; 36415; 74018; 81003; 82948; 85610; 85730; 93005; A9270; J0330; J0690; J1100; J2250; J2405; J2704; J3010; J7120

== ENCOUNTER → 2023-04-14 09:45 | Outpatient (CLI) | payer OTHER, SELFPAY ==
--- NOTE | ~2023-04-14 | XR_ITS ---
EXAMINATION: XR abdomen/kub 1V DATE: 04/14/2023 10:29 INDICATION: Calculus of kidney. TECHNIQUE: A supine view of the abdomen on 2 radiographs was obtained. COMPARISON: CT abdomen and pelvis 02/20/2023 FINDINGS: There are no dilated loops of bowel. The kidneys are obscured by bowel. There are approxima tely 3 visible stones in left kidney measuring up to 6 mm. There are phleboliths in left pelvis. IMPRESSION: 1. Left kidney stones. Reviewed, dictated and finalized at location A. IMPRESSION: 1. Left kidney stones.
== END ==
PROVIDERS: PCP Urology; Visit Provider Urology
DX: N20.0 Calculus of kidney (principal)
CPT/HCPCS: 74018

== ENCOUNTER 2023-07-11 08:56 | Outpatient (CLI) | payer OTHER, SELFPAY ==
[2023-07-11 18:20] LABS: Hematocrit 49.3 % (42.0-52.0); Hemoglobin 16.2 g/dL (14.0-18.0); Mean Corpuscular HGB Conc 32.9 g/dl (32-36); Mean Corpuscular Hemoglobin 30.6 pg (26-34); Mean Corpuscular Volume 93.2 fl (80-100); Mean Platelet Volume 10.2 fl (7.4-10.4); Platelet Count Result 280 k/mm3 (150-375); Red Blood Count 5.29 M/mm3 (4.6-6.20); Red Cell Distribution Width 12.9 % (11.5-14.5); White Blood Count 8.9 K/mm3 (4.5-10.0)
[2023-07-14 13:51] LABS: Testosterone Free 176.9 pg/mL (35.0-155.0); Testosterone Total 728 ng/dL (250-1100)
== END 2023-07-11 08:57 | disposition home or self-care (01) ==
LOC: ANHBWCLAB 08:59
PROVIDERS: PCP Family Medicine; Visit Provider Family Medicine
DX: R79.89 Other specified abnormal findings of blood chemistry (principal)
CPT/HCPCS: 36415; 84402; 84403; 85027

== ENCOUNTER 2023-09-08 08:46 | Outpatient (CLI) | payer OTHER, SELFPAY ==
[2023-09-08 19:31] LABS: Alanine Aminotransferase 31 U/L (6-50); Albumin Level 4.4 g/dL (3.5-5.1); Alkaline Phosphatase 55 U/L (38-126); Anion Gap 13 mmol/L (8-16); Aspartate Amino Transferase 51 U/L (17-59); Bilirubin,Total 0.8 mg/dL (0.2-1.3); Blood Urea Nitrogen 18 mg/dL (9-20); Calcium 9.6 mg/dL (8.4-10.2); Carbon Dioxide 22 mmol/L (22-30); Chloride 104 mmol/L (98-107); Cholesterol 186 mg/dL (0-200); Estimated Glomerular Filt Rate 52; Glucose 104 mg/dL (65-110); HDL Direct 27 mg/dL; Potassium 3.9 mmol/L (3.4-5.0); Sodium 139 mmol/L (137-145); Triglycerides 112 mg/dL (<150)
[2023-09-08 19:41] LABS: LDL Cholesterol Direct 125 mg/dL
[2023-09-08 20:00] LABS: Prostate Specific Antigen 0.4 ng/mL (< OR = 4.0)
[2023-09-08 20:05] LABS: Hemoglobin A1C 5.6 % (<5.7)
[2023-09-13 20:24] LABS: Testosterone Free 218.2 pg/mL (35.0-155.0); Testosterone Total 898 ng/dL (250-1100)
== END 2023-09-08 08:47 | disposition home or self-care (01) ==
LOC: ANHBWCLAB 08:47
PROVIDERS: PCP Family Medicine; Visit Provider Family Medicine
DX: R53.83 Other fatigue (principal); R79.89 Other specified abnormal findings of blood chemistry; Z00.00 Encounter for general adult medical examination without abnormal findings; E11.9 Type 2 diabetes mellitus without complications; N52.9 Male erectile dysfunction, unspecified
CPT/HCPCS: 36415; 80053; 80061; 83036; 84153; 84402; 84403; G0103

== ENCOUNTER 2023-11-21 19:46 | Emergency (ER) | payer OTHER, SELFPAY ==
--- NOTE | ~2023-11-21 | XR_ITS ---
Supine and upright views of the abdomen Clinical history: Renal stone Findings: Bowel gas pattern is nonspecific. No evidence for obstruction or free air. Probable very warner btle tiny bilateral renal stones are present. Questionable visualization of 5 mm stone at the right U VJ region/urinary bladder.. Osseous structures are intact. Impression: Probable several small renal stones bilaterally. Questionable visualization of 5 mm stone or UVJ region/urinary bladder. Reviewed, dictated and finalized at location . 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 Questionable visualization of 5 mm stone or UVJ region/urinary bladder.
--- NOTE | ~2023-11-21 | CT_ITS ---
Non-contrast CT scan of the Abdomen and Pelvis Clinical indication: Kidney stone Technique: 2.5 mm axial scans were obtained through the abdomen and pelvis without intravenous or or al contrast. Dose reduction technique was used on this scan by utilizing automated exposure control a nd iterative reconstruction technique. The dose-length product (DLP) was 853.70 mGy-cm. COMPARISON: 02/20/2023 Findings: Images through the lung bases reveal no abnormalities. There is a 5 mm stone which is probably just within the urinary bladder, or else at the right UVJ, wi th minimal right hydroureteronephrosis. There are multiple small additional bilateral nonobstructing renal stones. No left ureteral stone or left hydronephrosis. The liver, spleen, pancreas, gallbladder, and adrenals appear normal. There is no aortic aneurysm. There is no evidence of bowel obstruction. Images through the pelvis were performed. There is no evidence of ascites or lymphadenopathy. Urinary bladder otherwise unremarkable. Prostate gland seminal vesicles are unremarkable. Impression: 5 mm stone which is suspected to be just within the urinary bladder, otherwise at the right UVJ. Asso ciated minimal right hydronephrosis. Multiple small additional nonobstructing renal stones bilaterally. Reviewed, dictated and finalized at [facility]. ESSFACTORS CONSULTANT Impression: 5 mm stone which is suspected to be just within the urinary bladder, otherwise at the right UVJ. Associated minimal right hydronephrosis. Multiple small additional nonobstructing renal stones bilaterally.
[2023-11-21 19:56] VITALS: BP 148/80; PULSE 83; RESP 20; TEMP 36.4; O2SAT 98
[2023-11-21 20:36] LABS: Appearance Urine Clear (Clear); Bacteria Urine None Seen /hpf; Bilirubin Urine Negative (Negative); Blood Urine 3+ (Negative); Color Urine Yellow (Yellow); Glucose Urine UA Negative (Negative); Ketones Urine Negative (Negative); Leukocyte Esterase Ur Trace LEU/UL (Negative); Nitrate Urine Negative (Negative); Non Pathogenic Casts 0-2; Protein Urine Negative (Negative); RBC Urine >100 /hpf (0-2); Specific Grav Ur 1.017 (1.001-1.035); Squamous Epithelial Cell Urine None seen /hpf (Few); Urobilinogen Urine 0.2 mg/dL (<2.0)
[2023-11-21 20:41] LABS: Add Urine Microscopic? YES
[2023-11-21 22:01] VITALS: BP 168/91; PULSE 90; RESP 17; O2SAT 96
[2023-11-21 22:27] LABS: Basophils Percent Auto 0.1 % (0.2-1.2); Eosinophils Percent Auto 0.1 % (0-4.4); Hematocrit 46.7 % (42.0-52.0); Hemoglobin 15.8 g/dL (14.0-18.0); Immature Granulocyte Absolute 0.04 K/mm3 (0.00-0.031); Immature Granulocyte Percent A 0.3 % (0-0.5); Lymphocytes Absolute Auto 0.88 K/mm3 (0.9-3.2); Lymphocytes Percent Auto 6.5 % (18.3-44.2); Mean Corpuscular HGB Conc 33.8 g/dl (32-36); Mean Corpuscular Hemoglobin 30.3 pg (26-34); Mean Corpuscular Volume 89.5 fl (80-100); Mean Platelet Volume 9.7 fl (7.4-10.4); Monocytes Absolute Auto 0.7 K/mm3 (0.1-0.6); Monocytes Percent Auto 5.3 % (2.6-8.5); Neutrophils Absolute Auto 11.8 K/mm3 (1.3-6.7); Neutrophils Percent Auto 87.7 % (45.5-73.1); Platelet Count Result 232 k/mm3 (150-375); Red Blood Count 5.22 M/mm3 (4.6-6.20); Red Cell Distribution Width 13.2 % (11.5-14.5); White Blood Count 13.5 K/mm3 (4.5-10.0)
[2023-11-21 22:38] LABS: Alanine Aminotransferase 36 U/L (6-50); Albumin Level 4.3 g/dL (3.5-5.1); Alkaline Phosphatase 46 U/L (38-126); Anion Gap 6 mmol/L (8-16); Aspartate Amino Transferase 31 U/L (17-59); Bilirubin,Total 0.8 mg/dL (0.2-1.3); Blood Urea Nitrogen 16 mg/dL (9-20); Calcium 9.4 mg/dL (8.4-10.2); Carbon Dioxide 24 mmol/L (22-30); Chloride 104 mmol/L (98-107); Estimated CRCL calculation 74 ml/min; Estimated Glomerular Filt Rate 57; Glucose 146 mg/dL (65-110); Potassium 3.6 mmol/L (3.4-5.0); Sodium 134 mmol/L (137-145)
[2023-11-21] MEDS: HYDROmorphone HCL INJ (*CRX) 1 MG/ML SYR 0.5 MG IV PUSH (23:01)
[2023-11-22 00:29] VITALS: BP 132/72; PULSE 88; RESP 14; O2SAT 96
--- NOTE | 2023-11-22 00:29 | ED.GENADULT ---
HPI - General Adult General Chief complaint: Abdominal Pain Stated complaint: flank pain Time Seen by Provider: 11/21/23 22:46 History of Present Illness HPI narrative: A 58-year-old male history of kidney stones presenting with right-sided flank pain. Pain started yesterday and has been intermittent throughout the day. It is a sharp pain in the RLQ radiates to his back. He has taken several [place] with temporary improvement. This feels similar to his kidney stones he has had Past. Patient has required lithotripsy. Urologist is Dr. Mixon. Patient was having some difficulty urinating earlier but has been able to urinate in the Emergency department. Related Data Home Medications Medication Instructions Recorded Confirmed multivitamin 1 tablet PO DAILY 11/05/19 04/04/23 loratadine 10 mg tablet (Claritin) 10 mg PO DAILY 04/04/23 04/04/23 omeprazole 20 mg tablet,delayed 20 mg PO DAILY 04/04/23 04/04/23 release Allergies Allergy/AdvReac Type Severity Reaction Status Date / Time No Known Allergies Allergy Verified 07/17/23 15:27 [facility] Past Medical History Medical History (Updated 11/22/23 @ 00:36 by Kelton Jean MD) Adenomatous colon polyp Controlled type 2 diabetes mellitus without complication Erectile dysfunction GERD (gastroesophageal reflux disease) Kidney stones PONV (postoperative nausea and vomiting) Seasonal allergies Sleep apnea Umbilical hernia Surgical History Surgical History History of left shoulder replacement (~2017) History of lithotripsy (~2019) Family History Family History Father Family history of malignant neoplasm Other Family history of kidney stones Hypertension Social History Social History (Updated 07/17/23 @ 15:26 by Abi Valentine MA) Smoking status: Never smoker Second hand tobacco smoke exposure: Yes Alcohol intake: current Drinks per week: 5 Substance use: never Substance use type: does not use Lack of Transportation: No Lack of Food: Never True Current Housing: I Have Housing Concerned About Future Housing: No Difficulty Paying Gas/Electric Bills: No Difficulty Paying for Meds: No Currently Unemployed: No Education: Associate Degree Difficulty w/ Childcare or Family Care: No Living arrangements: with family Additional living arrangements comments: and Mother Occupation/Education: occupation Gender identity (if verbalized by the patient): Male Sexual Orientation (if Verbalized by the Patient): Straight or Heterosexual Spiritual care concerns: No Agree to blood products: Yes Exam Narrative: APPEARANCE: No apparent distress. Head: atraumatic. EYES: EOMI, NOSE: Atraumatic NECK: Trachea midline RESPIRATORY: No increased rate of breathing CARDIOVASCULAR: RRR, ABDOMINAL: soft nontender no guarding or rebound, no CVA tenderness, no suprapubic mass MUSCULOSKELETAl: No obvious deformities NEURO: Alert. Moving 4/4 extremities SKIN:: Warm, dry. Normal color PSYCHIATRIC: Normal affect Course Vital Signs Vital signs: Vital Signs Temperature 97.6 F 11/21/23 19:56 Pulse Rate 83 11/21/23 19:56 Respiratory Rate 20 11/21/23 19:56 Blood Pressure 148/80 H 11/21/23 19:56 Pulse Oximetry 98 11/21/23 19:56 Oxygen Delivery Room Air 11/21/23 19:56 Temperature 97.6 F 11/21/23 19:56 Pulse Rate 90 11/21/23 22:01 Respiratory Rate 17 11/21/23 22:01 Blood Pressure 168/91 H 11/21/23 22:01 Pulse Oximetry 96 11/21/23 22:01 Oxygen Delivery Room Air 11/21/23 19:56 Medical Decision Making MDM Narrative Medical decision making narrative: -Course: 58-year-old male presenting with kidney stone pain. CT showed a 6 mm stone at the UVJ. Patient's pain was controlled ED. No signs of infection. KUB obtained. Patient wants to go home and says he will call
[2023-11-22] MEDS: ACETAMINOPHEN 500 MG TABLET 1000 MG PO (00:55)
[2023-11-22] MEDS: HYDROmorphone HCL INJ (*CRX) 1 MG/ML SYR 0.5 MG IV PUSH (00:56)
[2023-11-22 01:12] VITALS: BP 134/75; PULSE 95; RESP 14; TEMP 36.7; O2SAT 96
== END 2023-11-22 01:22 | disposition home or self-care (01) ==
PROVIDERS: Emergency Provider Emergency Medicine; PCP Nurse Practitioner Adult Health
DX: N20.0 Calculus of kidney (principal); E11.9 Type 2 diabetes mellitus without complications; K21.9 Gastro-esophageal reflux disease without esophagitis; Z87.442 Personal history of urinary calculi
CPT/HCPCS: 36415; 74018; 74176; 80053; 81001; 85025; 87086; 96374; 99284; A9270; J1170

== ENCOUNTER → 2023-11-23 12:22 | Outpatient (CLI) | payer OTHER, SELFPAY ==
--- NOTE | ~2023-11-23 | XR_ITS ---
EXAMINATION: XR abdomen/kub 1V DATE: 11/23/2023 12:39 INDICATION: Right ureteral stone TECHNIQUE: A supine view of the abdomen on 2 radiographs was obtained. COMPARISON: 11/22/2023 FINDINGS: No dilated loops of bowel in the abdomen or pelvis. Lung bases are clear. Heart size is normal. There are a few left renal stones the largest measuring 9 x 3 mm the lower pole and the second largest brigitte suring 5 mm at the upper pole. The tiny right renal stone seen on prior CT are too small to be seen o n the plain radiographs. Unchanged pattern of phleboliths in the left hemipelvis. The previously seen dense positioned lateral to the right side of the coccyx on the prior radiographs suspicious for the stone seen at the ureterovesicular junction on prior CT is not identified on the current study. IMPRESSION: 1. Unchanged left nephrolithiasis. The stone previously seen at the right ureterovesicular junction i s not identified on the current radiographs. Reviewed, dictated and finalized at location A. 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 Unchanged left nephrolithiasis. The stone previously seen at the right urete rovesicular junction is not identified on the current radiographs.
== END ==
PROVIDERS: PCP Urology; Visit Provider Physician Assistant
DX: N20.0 Calculus of kidney (principal)
CPT/HCPCS: 74018

== ENCOUNTER 2024-03-14 06:42 | Outpatient (CLI) | payer OTHER, SELFPAY ==
[2024-03-14 23:46] LABS: Alanine Aminotransferase 25 U/L (6-50); Albumin Level 4.4 g/dL (3.5-5.1); Alkaline Phosphatase 56 U/L (38-126); Anion Gap 8 mmol/L (4-12); Aspartate Amino Transferase 57 U/L (17-59); Bilirubin,Total 0.9 mg/dL (0.2-1.3); Blood Urea Nitrogen 14 mg/dL (9-20); Carbon Dioxide 21 mmol/L (22-30); Chloride 107 mmol/L (98-107); Cholesterol 168 mg/dL (0-200); Estimated Glomerular Filt Rate 57; Glucose 95 mg/dL (65-110); HDL Direct 31 mg/dL; Potassium 3.6 mmol/L (3.4-5.0); Sodium 136 mmol/L (137-145); Triglycerides 90 mg/dL (<150)
[2024-03-14 23:57] LABS: LDL Cholesterol Direct 110 mg/dL
[2024-03-15 00:39] LABS: Prostate Specific Antigen 0.4 ng/mL (< OR = 4.0)
[2024-03-15 01:06] LABS: Hemoglobin A1C 5.2 % (<5.7)
[2024-03-15 12:50] LABS: Creatinine Urine 190.7 mg/dL
[2024-03-15 12:57] LABS: MALB Creatinine Ratio 10.9 mg/g (0-30); Microalbumin Urine Random 20.7 mg/L (0-16.7)
[2024-03-19 15:59] LABS: Testosterone Free 324.1 pg/mL (35.0-155.0); Testosterone Total 1354 ng/dL (250-1100)
== END 2024-03-14 06:43 | disposition home or self-care (01) ==
LOC: ANHBWCLAB 06:45
PROVIDERS: PCP Family Medicine; Visit Provider Family Medicine
DX: E11.9 Type 2 diabetes mellitus without complications (principal); G47.30 Sleep apnea, unspecified; K21.9 Gastro-esophageal reflux disease without esophagitis; R79.89 Other specified abnormal findings of blood chemistry
CPT/HCPCS: 36415; 80053; 80061; 82043; 83036; 84153; 84402; 84403; G0103

== ENCOUNTER 2024-04-04 08:40 | Outpatient (CLI) | payer OTHER, SELFPAY ==
[2024-04-09 12:24] LABS: Testosterone Free 122.3 pg/mL (35.0-155.0); Testosterone Total 649 ng/dL (250-1100)
== END 2024-04-04 08:41 | disposition home or self-care (01) ==
LOC: ANHBWCLAB 08:41
PROVIDERS: PCP Family Medicine; Visit Provider Family Medicine
DX: G47.30 Sleep apnea, unspecified (principal); Z00.00 Encounter for general adult medical examination without abnormal findings; E11.9 Type 2 diabetes mellitus without complications; E66.9 Obesity, unspecified
CPT/HCPCS: 36415; 84402; 84403

== ENCOUNTER 2024-05-08 12:15 | Outpatient (CLI) | payer OTHER, SELFPAY ==
--- NOTE | ~2024-05-08 | XR_ITS ---
XR foot RT 2V Ordering provider: Jackie Stout APRN History: . Stepped on metal, pain . Comparison: None. FINDINGS: BONES: No acute fracture or dislocation. JOINT SPACES: Normal. No tarsal coalition. SOFT TISSUES: Normal. IMPRESSION: No acute osseous abnormality of the right foot. Reviewed, dictated and finalized at location A.
== END 2024-05-08 12:16 | disposition home or self-care (01) ==
PROVIDERS: PCP Nurse Practitioner Adult Health; Visit Provider Nurse Practitioner Adult Health
DX: S99.929A Unspecified injury of unspecified foot, initial encounter (principal); X58.XXXA Exposure to other specified factors, initial encounter
CPT/HCPCS: 73620

== ENCOUNTER 2024-06-03 08:38 | Outpatient (CLI) | payer OTHER, SELFPAY ==
--- NOTE | ~2024-06-03 | XR_ITS ---
Supine and upright views of the abdomen Clinical history: Bilateral kidney stones COMPARISON: 11/23/2023 Findings: Bowel gas pattern is nonspecific. No evidence for obstruction or free air. There are probab le bilateral renal stones, left more numerous than right. Osseous structures are intact. Impression: Bilateral nephrolithiasis, left greater than right. Reviewed, dictated and finalized at location . Impression: Bilateral nephrolithiasis, left greater than right.
== END 2024-06-03 08:39 ==
PROVIDERS: PCP Nurse Practitioner Adult Health; Visit Provider Physician Assistant
DX: N20.0 Calculus of kidney (principal)
CPT/HCPCS: 74018

== ENCOUNTER 2024-10-31 07:45 | Outpatient (CLI) | payer OTHER, SELFPAY ==
[2024-10-31 18:28] LABS: Basophils Percent Auto 0.3 % (0.2-1.2); Eosinophils Percent Auto 0.5 % (0-4.4); Hematocrit 48.5 % (42.0-52.0); Immature Granulocyte Absolute 0.01 K/mm3 (0.00-0.031); Immature Granulocyte Percent A 0.2 % (0-0.5); Lymphocytes Absolute Auto 1.11 K/mm3 (0.9-3.2); Lymphocytes Percent Auto 18.1 % (18.3-44.2); Mean Corpuscular Hemoglobin 31.2 pg (26-34); Mean Corpuscular Volume 94.5 fl (80-100); Mean Platelet Volume 10.3 fl (7.4-10.4); Monocytes Absolute Auto 0.6 K/mm3 (0.1-0.6); Monocytes Percent Auto 9.1 % (2.6-8.5); Neutrophils Absolute Auto 4.4 K/mm3 (1.3-6.7); Neutrophils Percent Auto 71.8 % (45.5-73.1); Platelet Count Result 205 k/mm3 (150-375); Red Blood Count 5.13 M/mm3 (4.6-6.20); Red Cell Distribution Width 12.9 % (11.5-14.5); White Blood Count 6.1 K/mm3 (4.5-10.0)
[2024-10-31 19:28] LABS: Alanine Aminotransferase 20 U/L (6-50); Albumin Level 4.2 g/dL (3.5-5.1); Alkaline Phosphatase 54 U/L (38-126); Anion Gap 12 mmol/L (4-12); Aspartate Amino Transferase 31 U/L (17-59); Blood Urea Nitrogen 16 mg/dL (9-20); Calcium 8.8 mg/dL (8.4-10.2); Carbon Dioxide 24 mmol/L (22-30); Chloride 102 mmol/L (98-107); Cholesterol 140 mg/dL (0-200); Estimated Glomerular Filt Rate 60; Glucose 87 mg/dL (65-110); HDL Direct 33 mg/dL; Magnesium 2.2 mg/dL (1.6-2.3); Potassium 3.7 mmol/L (3.4-5.0); Sodium 138 mmol/L (137-145); Triglycerides 53 mg/dL (<150)
[2024-10-31 19:40] LABS: LDL Cholesterol Direct 86 mg/dL
[2024-10-31 20:00] LABS: Microalbumin Urine Random 11.8 mg/L (0-16.7)
[2024-10-31 20:03] LABS: Creatinine Urine 158.4 mg/dL; MALB Creatinine Ratio 7.4 mg/g (0-30)
[2024-10-31 21:05] LABS: Hemoglobin A1C 5.1 % (<5.7)
== END 2024-10-31 07:46 | disposition home or self-care (01) ==
LOC: ANHBWCLAB 07:46
PROVIDERS: PCP Nurse Practitioner Adult Health; Visit Provider Nurse Practitioner Adult Health
DX: E11.9 Type 2 diabetes mellitus without complications (principal); I10 Essential (primary) hypertension; R79.89 Other specified abnormal findings of blood chemistry
CPT/HCPCS: 36415; 80053; 80061; 82043; 82565; 83036; 83735; 84402; 84403; 85025

== ENCOUNTER 2024-11-18 15:50 | Outpatient (CLI) | payer OTHER, SELFPAY ==
--- NOTE | ~2024-11-18 | XR_ITS ---
EXAMINATION: XR chest 2V DATE: 11/18/2024 16:01 INDICATION: Influenza due to other identified influenza virus. TECHNIQUE: Frontal and lateral views of the chest were obtained. COMPARISON: CT abdomen and pelvis 11/21/2023 FINDINGS: There is no pneumonia, pleural effusion, or pneumothorax. The heart size is normal. There i s a left shoulder arthroplasty. IMPRESSION: 1. No acute cardiopulmonary disease. Reviewed, dictated and finalized at location [facility]. [facility]
--- OUTSIDE RECORDS SUMMARY | 2024-11-18 15:53 | XMS_ITS | Clinical Summary ---
Author Organization [facility] Address [address] [place] [address] Phone Care Team Providers Care Home Help Aide Name Role Phone Dillon Pleitez MD Primary Care Provider [phone] Allergies No known active allergies Medications aspirin 81 MG Chewable Tablet Take 1 Tab by mouth daily. 100 Tab 7 Active ondansetron (ZOFRAN-ODT) 4 MG TABLET DISPERSIBLE Take 1 Tab by mouth every 8 hours as needed for up to 20 doses. 20 Tab 7 Active Additional Information Patient not taking.Reported on 07/15/2019 Saw [place], Serenoa repens, (SAW PALMETTO PO) Take 1 Tab by mouth daily. Active CRANBERRY PO Take 1 Tab by mouth daily. Active Apple Yordy Vn-Grn Tea-Bit Or-Cr (APPLE CIDER VINEGAR PLUS) Tablet Take 1 Tab by mouth daily. Active MULTIPLE VITAMIN PO Take 1 Tab by mouth daily. Active ascorbic acid (ASCORBIC ACID) 500 MG Tablet Take 1 tablet by mouth 2 times daily until finished 7 Active hydrOXYzine (VISTARIL) 50 MG CapsuleIndicatio ns:Anxiety as needed. Indications: Feeling Anxious 7 Active meclizine (ANTIVERT) 25 MG Tablet 9 Active omeprazole (PRILOSEC) 40 MG CAPSULE DELAYED RELEASE daily. 7 Active sildenafil citrate (VIAGRA) 100 MG Tablet 9 Active Active Problems Problem Noted Date Diagnosed Date Chest pain, rule out acute myocardial infarction 03/27/2017 GERD (gastroesophageal reflux disease) 7 Family History Medical History Relation Name Comments Diabetes Brother Cancer Father prostate, lung, kidney and bladder Chronic Obstructive Pulmonary Disease Father Diabetes Father Emphysema Father High Cholesterol Father Hypertension Father Lung Cancer Father Diabetes Mother High Cholesterol Mother Hypertension Mother Rheumatoid Arthritis Mother Relation Name Status Comments Brother Father (Age 79) Mother Alive Social History Tobacco Use Types Packs/Day Years Used Date Smoking Tobacco: Never Smokeless Tobacco: Never Alcohol Use Standard Drinks/Week Comments Yes 0 (1 standard drink = 0.6 oz pur e alcohol) social Sex and Gender Information Value Date Recorded Sex Assigned at Not on file Legal Sex Male 11:26 AM CDT Gender Identity Not on file Sexual Orientation Not on file Last Filed Vital Signs Vital Sign Reading Time Taken Comments Blood Pressure 142/106 07/15/2019 2:54 PM CDT Pulse 83 07/15/2019 2:54 PM CDT Temperature 36.4 C (97.5 F) 07/15/2019 2:54 PM CDT Respiratory Rate 16 07/15/2019 2:54 PM CDT Oxygen Saturation 98% 07/15/2019 2:54 PM CDT Inhaled Oxygen Concentration - - Weight 119.3 kg (263 lb) 08/19/2021 9:00 AM PHOTOVOLTAIC PANEL INSTALLER Height 180.3 cm (5' 11 ) 08/19/2021 9:00 AM PHOTOVOLTAIC PANEL INSTALLER Body Mass Index 36.68 08/19/2021 9:00 AM PHOTOVOLTAIC PANEL INSTALLER Plan of Treatment Health Maintenance Due Date Last Done Comments Hepatitis C Virus (HCV) Screening 1966 TdaP Immunization 1966 Hepatitis B Immunization (1 of 3 - 19+ 3-dose series) 1985 Cologuard 2016 Immunochemical Fecal Occult Blood 2016 Pneumococcal Immunization (5 0+ years) (1 of 1 - PCV) 2016 Zoster Immunization (1 of 2) 2016 Colonoscopy 05/07/2021 05/07/2018 Colorectal Cancer Screening 05/07/2021 PSA Discussion 2021 Influenza Immunization (#1) 2024 07/26/2017 SARS-COV-2 Immunization (3 - 2023- season) 2024 01/18/2021, 12/28/2020 Respiratory Syncytial Virus (RSV) Immunization (Adult) (1 - 1-dose 75+ series) 2041 05/07/2018 Meningococcal Immunization (ACWY) Aged Out No longer eligible b ased on patient's age to complete this topic Pneumococcal Immunization Combined Aged Out No longer eligible b ased on patient's age to complete this topic Rotavirus Immunization Aged Out No lo nger eligible based on patient's age to complete this topic Medical Devices Implanted Type Area Training Program Developer Device Identifier Shelf Expiration Date Model / Serial / Lot Angioseal Vip 6fr - [id number] Implanted:Qty: 1 on 03/30/2017 by Lorelei Nelson MD at [facility] IMPLANT Right: Groin ST SKIP / ATRIAL FIB 07/08/2017 [id number] / / [id number] Advance Directives * Full Code (Latest Code Status on File) Date Activated Date Inactivated Comments 03/27/2017 4:38 PM 03/30/2017 6:29 PM CPR-Full Jet atment: FULL ARREST: Attempt Resuscitation/CPR wit intubation and mechanical ventilation. PRE-ARREST: Use entire range of life support measures to stabilize the patient. Care Teams Home Help Aide Relationship Specialty Start Date End Date Dillon Pleitez MD [address] [place] [address] PCP - General Family Medicine 03/27/17
--- OUTSIDE RECORDS SUMMARY | 2024-11-18 15:53 | XMS_ITS | Referral Summary ---
Author Organization [facility] Address [address] [place] [address] Care Team Providers Care Chemical Process Project Engineer Name Role Phone Kelton Pleitez MD Primary Care Provider [phone] Allergies No known active allergies Medications omeprazole (PriLOSEC) 40 mg capsule 7 Active ondansetron (ZOFRAN) 4 mg tablet Take 1-2 tablets by mouth every 8 hours as needed for nausea or vomitting 30 tablet 7 Active ascorbic acid (VITAMIN C) 500 mg tablet,chewable Take 1 tablet by mouth 2 times daily until finished 60 tablet/chew tab 7 Active SSD 1 % cream 7 Active aspirin 81 mg chewable tablet Take 81 mg by mouth. 7 Active hydrOXYzine (VISTARIL) 50 mg capsule 7 Active traMADol (ULTRAM) 50 mg tablet 7 Active HYDROcodone-marielos taminophen (NORCO) 10-325 mg per tabletIndicatio ns:Pain Take 1-2 tablets every 4-6 hours as needed for pain 40 tablet 7 Active FLUZONE QUAD 0502-9575, PF, 60 mcg (15 mcg x 4)/0.5 mL syringe 7 Active ibuprofen (ADVIL,MOTRIN) 800 mg tablet Take 1 tablet (800 mg total) by mouth every 6 (six) hours as needed for pain. 90 tablet 8 Active clindamycin (CLEOCIN) 300 mg capsule Take 1 capsule (300 mg total) by mouth 3 (three) times a day. Take 2 capsules (600MG) by oral route 1 hour prior to dental procedure 2 capsule 8 9 Active Active Problems Problem Noted Date Diagnosed Date S/P shoulder hemiarthroplasty, left 10/16/2017 Closed fracture of olecranon process of ulna Social History Tobacco Use Types Packs/Day Years Used Date Smoking Tobacco: Never Smokeless Tobacco: Never Personal Safety Answer Date Recorded Getting School Help Needed Not on file 12/22 Sex and Gender Information Value Date Recorded Sex Assigned at Not on file Legal Sex Male 2:41 PM ALLOCATION ANALYST Gender Identity Not on file Sexual Orientation Not on file Last Filed Vital Signs Vital Sign Reading Time Taken Comments Blood Pressure 137/91 10/12/2017 2:49 PM ALLOCATION ANALYST Pulse 86 10/12/2017 2:49 PM ALLOCATION ANALYST Temperature - - Respiratory Rate - - Oxygen Saturation - - Inhaled Oxygen Concentration - - Weight 100.2 kg (220 lb 12.8 oz) 10/12/2017 2:49 PM ALLOCATION ANALYST Height 180.3 cm (5' 11 ) 10/12/2017 2:49 PM ALLOCATION ANALYST Body Mass Index 30.8 10/12/2017 2:49 PM ALLOCATION ANALYST Plan of Treatment Not on file Insurance [facility] Address: [facility] [address] [place] [address] Care Teams Chemical Process Project Engineer Relationship Specialty Start Date End Date Kelton Pleitez MD [address] [place] [address] PCP - General 05/23/17
--- OUTSIDE RECORDS SUMMARY | 2024-11-18 15:53 | XMS_ITS | Clinical Summary ---
Author Organization [facility] Address [address] [place] [address] Care Team Providers Care Flexo Folder Gluer Operator Name Role Phone Kelton Pleitez MD Primary Care Provider [phone] Allergies No known active allergies Medications omeprazole [...] pain 40 tablet 7 Active FLUZONE QUAD 2064-8281, PF, 60 mcg (15 mcg x 4)/0.5 [...] Closed fracture of olecranon process of ulna Surgical History Surgery Date Site/Laterality Comments RENAL ARTERY STENT SHOULDER ARTHROSCOPY Medical History Medical History Date Comments Hypertension Chronic kidney disease Family History Medical History Relation Name Comments COPD Mother Cancer Mother Hyperlipidemia Mother Relation Name Status Comments Mother Social History Tobacco Use Types Packs/Day Years Used Date Smoking Tobacco: Never Smokeless Tobacco: Never Personal Safety Answer Date Recorded Getting School Help Needed Not on file 12/22 Sex and Gender Information Value Date Recorded Sex Assigned at Not on file Legal Sex Male 2:41 PM WEB PORTAL DEVELOPER Gender Identity Not on file Sexual Orientation Not on file Obstetrics History Last Filed Vital Signs Vital Sign Reading Time Taken Comments Blood Pressure 137/91 10/12/2017 2:49 PM WEB PORTAL DEVELOPER Pulse 86 10/12/2017 2:49 PM WEB PORTAL DEVELOPER Temperature - - Respiratory Rate - - Oxygen Saturation - - Inhaled Oxygen Concentration - - Weight 100.2 kg (220 lb 12.8 oz) 10/12/2017 2:49 PM WEB PORTAL DEVELOPER Height 180.3 cm (5' 11 ) 10/12/2017 2:49 PM WEB PORTAL DEVELOPER Body Mass Index 30.8 10/12/2017 2:49 PM WEB PORTAL DEVELOPER Plan of Treatment Not on file Insurance [facility] [employer] Care Teams Flexo Folder Gluer Operator Relationship Specialty Start Date End Date Kelton Pleitez MD [address] [place] [address] PCP - General 05/23/17
== END 2024-11-18 15:51 | disposition home or self-care (01) ==
LOC: ANHBWCLAB 15:51
PROVIDERS: PCP Nurse Practitioner Adult Health; Visit Provider Nurse Practitioner Adult Health
DX: J10.1 Influenza due to other identified influenza virus with other respiratory manifestations (principal)
CPT/HCPCS: 71046

== ENCOUNTER 2025-03-05 11:23 | Outpatient (CLI) | payer OTHER, SELFPAY ==
--- NOTE | ~2025-03-05 | XR_ITS ---
Supine and upright views of the abdomen Clinical history: Renal stones COMPARISON: 06/03/2024 Findings: Bowel gas pattern is nonspecific. No evidence for obstruction or free air. Multiple left re nal stones are present, unchanged. Probable small right renal stones. Osseous structures are intact. Impression: Nephrolithiasis similar to prior exam, left worse than right. Reviewed, dictated and finalized at [facility]. Impression: Nephrolithiasis similar to prior exam, left worse than right.
== END 2025-03-05 11:24 | disposition home or self-care (01) ==
LOC: MICIMG 11:25
PROVIDERS: PCP Nurse Practitioner Adult Health; Visit Provider Urology
DX: N20.0 Calculus of kidney (principal)
CPT/HCPCS: 74018

== ENCOUNTER 2025-03-13 08:14 | Outpatient (CLI) | payer OTHER, SELFPAY ==
--- NOTE | ~2025-03-13 | CT_ITS ---
EXAMINATION: CT abdomen pelvis wo con DATE: 03/13/2025 08:44 INDICATION: Bilateral kidney stones TECHNIQUE: Computed tomography (CT) of the abdomen and pelvis was performed without intravenous contr ast. The dose-length product was 368.03 mGy-cm. Automated exposure control and iterative reconstructi on technique were employed. COMPARISON: 11/21/2023 FINDINGS: Lung bases are unremarkable. Heart size normal. No significant pleural or pericardial effus ion. The liver, spleen, pancreas, adrenal glands are unremarkable. Gallbladder is present. There are multiple bilateral renal stones. No ureteral stones or hydronephrosis. Colonic diverticulosis without evidence for diverticulitis. No acute osseous abnormality. There is grade 1 spondylolisthesis at L5- S1. Mild lumbar spondylosis. Nonobstructive bowel gas pattern. No free air or free fluid. IMPRESSION: 1. Bilateral nephrolithiasis. Reviewed, dictated and finalized at location A.
== END 2025-03-13 08:15 | disposition home or self-care (01) ==
LOC: MICIMG 08:14
PROVIDERS: PCP Nurse Practitioner Adult Health; Visit Provider Urology
DX: N20.0 Calculus of kidney (principal)
CPT/HCPCS: 74176

== ENCOUNTER 2025-03-18 08:59 | Outpatient (CLI) | payer OTHER, SELFPAY ==
--- NOTE | 2025-03-18 09:09 | ECG_ITS ---
Test Date: 2025-03-18 09:29:09 Measurements Intervals [place] Rate: 81 P: 51 IA: 182 QRS: 50 QRSD: 82 T: 48 QT: 337 QTc: 393 Interpretive Statements SINUS RHYTHM PEAKED T WAVES- CONSIDER HYPERKALEMIA ABNORMAL ECG No previous ECG available for comparison Electronically Signed On 03-18-2025 09:38:41 CDT by José Manuel Martinez D.O.
--- OUTSIDE RECORDS SUMMARY | 2025-03-18 09:30 | XMS_ITS | Clinical Summary ---
Author Organization [facility] Address [address] [place] [address] Phone Care Team Providers Care Product Safety Lead Name Role Phone Dillon Pleitez MD Primary Care Provider Allergies No known active allergies Medications aspirin 81 MG Chewable Tablet Take 1 Tab by mouth daily. 100 Tab 7 Active ondansetron (ZOFRAN-ODT) 4 MG TABLET DISPERSIBLE Take 1 Tab by mouth every 8 hours as needed for up to 20 doses. 20 Tab 7 Active Additional Information Patient not taking.Reported on 07/15/2019 Saw [place], Serenoa repens, (SAW PALMETTO PO) Take 1 [...] 119.3 kg (263 lb) 08/19/2021 9:00 AM CONVALESCENT SITTER Height 180.3 cm (5' 11) 08/19/2021 9:00 AM CONVALESCENT SITTER Body Mass Index 36.68 08/19/2021 9:00 AM CONVALESCENT SITTER Plan of Treatment Health Maintenance Due Date Last Done Comments Hepatitis C Virus (HCV) Screening 1966 TdaP Immunization 1966 Hepatitis B Immunization (1 of 3 - 19+ 3-dose series) 1985 Cologuard 2011 Immunochemical Fecal Occult Blood 2011 Pneumococcal Immunization (5 0+ years) (1 of 1 - PCV) 2016 Zoster Immunization (1 of 2) 2016 Colonoscopy 05/07/2021 05/07/2018 Colorectal Cancer Screening 05/07/2021 SARS-COV-2 Immunization ( season) 2024 01/18/2021, 12/28/2020 Influenza Immunization (Seas on Ended) 2025 07/26/2017 Respiratory Syncytial Virus (RSV) Immunization (Adult) (1 - 1-dose 75+ series) 2041 Human Papillomavirus (HPV) Immunization Aged Out No longer eligible b ased on patient's age to complete this topic Meningococcal Immunization (ACWY) Aged Out No longer eligible b ased on patient's age to complete this topic Rotavirus Immunization Aged Out No lo nger eligible based on patient's age to complete this topic Medical Devices Implanted Type Area Parts Product Analyst Device Identifier Shelf Expiration Date Model / Serial / Lot Angioseal Vip 6fr - [id number] Implanted:Qty: 1 on 03/30/2017 by Lorelei Nelson MD at [facility] IMPLANT Right: Groin ST SKIP / ATRIAL FIB 07/08/2017 [id number] / / [id number] Advance Directives * Full Code (Latest Code Status on File) Date Activated Date Inactivated Comments 03/27/2017 4:38 PM 03/30/2017 6:29 PM CPR-Full Jet atment: FULL ARREST: Attempt Resuscitation/CPR wit intubation and mechanical ventilation. PRE-ARREST: Use entire range of life support measures to stabilize the patient. Care Teams Product Safety Lead Relationship Specialty Start Date End Date Dillon Pleitez MD [address] [place] [id number] PCP - General Family Medicine 03/27/17
--- OUTSIDE RECORDS SUMMARY | 2025-03-18 09:30 | XMS_ITS | Referral Summary ---
Author Organization [facility] Address [address] [place] [address] Care Team Providers Care Machine Sneller Name Role Phone Kelton Pleitez MD Primary Care Provider [phone] Allergies No known active allergies Medications omeprazole [...] pain 40 tablet 7 Active FLUZONE QUAD 2269-3419, PF, 60 mcg (15 mcg x 4)/0.5 [...] on file Legal Sex Male 2:41 PM CUSTOM HARVESTER Gender Identity Not on file Sexual Orientation Not on file Last Filed Vital Signs Vital Sign Reading Time Taken Comments Blood Pressure 137/91 10/12/2017 2:49 PM CUSTOM HARVESTER Pulse 86 10/12/2017 2:49 PM CUSTOM HARVESTER Temperature - - Respiratory Rate - - Oxygen Saturation - - Inhaled Oxygen Concentration - - Weight 100.2 kg (220 lb 12.8 oz) 10/12/2017 2:49 PM CUSTOM HARVESTER Height 180.3 cm (5' 11) 10/12/2017 2:49 PM CUSTOM HARVESTER Body Mass Index 30.8 10/12/2017 2:49 PM CUSTOM HARVESTER Plan of Treatment Not on file Insurance Care Teams Machine Sneller Relationship Specialty Start Date End Date Kelton Pleitez MD [address] [address] PCP - General 05/23/17
--- OUTSIDE RECORDS SUMMARY | 2025-03-18 09:30 | XMS_ITS | Clinical Summary ---
Author Organization [facility] Address [address] [place] [address] Care Team Providers Care Surgical Appliances Salesperson Name Role Phone Kelton Pleitez MD Primary Care Provider +1- [phone] Allergies No known active allergies Medications omeprazole [...] pain 40 tablet 7 Active FLUZONE QUAD 9340-7552, PF, 60 mcg (15 mcg x 4)/0.5 [...] on file Legal Sex Male 2:41 PM COOLING PAN TENDER Gender Identity Not on file Sexual Orientation Not on file Obstetrics History Last Filed Vital Signs Vital Sign Reading Time Taken Comments Blood Pressure 137/91 10/12/2017 2:49 PM COOLING PAN TENDER Pulse 86 10/12/2017 2:49 PM COOLING PAN TENDER Temperature - - Respiratory Rate - - Oxygen Saturation - - Inhaled Oxygen Concentration - - Weight 100.2 kg (220 lb 12.8 oz) 10/12/2017 2:49 PM COOLING PAN TENDER Height 180.3 cm (5' 11) 10/12/2017 2:49 PM COOLING PAN TENDER Body Mass Index 30.8 10/12/2017 2:49 PM COOLING PAN TENDER Plan of Treatment Not on file Insurance [facility] CHOICE PL[facility] Care Teams Surgical Appliances Salesperson Relationship Specialty Start Date End Date Kelton Pleitez MD [address] [place] [address] PCP - General 05/23/17
[2025-03-18 10:20] LABS: Anion Gap 7 mmol/L (4-12); Blood Urea Nitrogen 14 mg/dL (9-20); Calcium 9.6 mg/dL (8.4-10.2); Carbon Dioxide 28 mmol/L (22-30); Chloride 101 mmol/L (98-107); Estimated Glomerular Filt Rate > 60; Glucose 94 mg/dL (65-110); Potassium 4.2 mmol/L (3.4-5.0); Sodium 136 mmol/L (137-145)
[2025-03-18 10:23] LABS: INR 1.2; Prothrombin Time 14.8 Seconds (11.1-14.7)
[2025-03-18 10:24] LABS: Partial Thromboplastin Time 29.2 Seconds (22.3-36.8)
== END 2025-03-18 09:00 | disposition home or self-care (01) ==
LOC: ANHSURGERY 09:06
PROVIDERS: Anesthesiology; PCP Nurse Practitioner Adult Health; Visit Provider Urology
DX: Z01.818 Encounter for other preprocedural examination (principal); E11.9 Type 2 diabetes mellitus without complications; I10 Essential (primary) hypertension; N20.0 Calculus of kidney; R94.31 Abnormal electrocardiogram [ECG] [EKG]
CPT/HCPCS: 36415; 80048; 85610; 85730; 87086; 93005

== ENCOUNTER 2025-03-21 02:24 | Day surgery (SDC) | payer OTHER, SELFPAY ==
[2025-03-17 14:05] VITALS: BMI 26.9
--- NOTE | 2025-03-17 14:13 | PC.NURSE ---
Report to the Outpatient Waiting Room, entrance under the green pavilion located off [facility], at time _0930_ on date _[id number]_. Planned Procedure Time: _1130_.? Time changes happen often and if your time is changed the preop area will call you the afternoon before. - You and your visitor will be asked to self-screen and do not enter if you have any COVID symptoms. Please call surgeon if you need to reschedule. - A mask is optional within the hospital at this time. Patients may have clear liquids (water, carbonated beverages, clear teas, apple juice) until 3 hours prior to surgery with a maximum of 20 ounces. - No food from midnight until time of surgery and no smoking, or chewing tobacco (or any form of nicotine). No chewing gum, candy or mints. Take only the following medications with a SIP of water on the morning of surgery: ___None__ DO NOT STOP ANY OF YOUR OTHER PRESCRIPTION MEDICATIONS PRIOR TO SURGERY EXCEPT THE FOLLOWING Hold all vitamins and supplements for 3 days per anesthesiologist. Medications to discontinue per physician ____Patient stopped Mounjaro with last dose [id number]____ Date to take last dose Please no make-up, nail nicaraguan, hairspray, perfume, deodorant, or body powder the day of surgery.? No jewelry (including any body piercings) or valuables the day of surgery, leave them at home.? Please take a shower or bath the night before, or the morning of, surgery with an antibacterial soap.? Wear comfortable, loose fitting clothing.? - Jewelry must be removed prior to entering the operating room.? Rings and piercings that are not removed may be cut off. - The hospital will not accept responsibility for valuables.? - Please leave all valuables, including medications, at home the day of surgery. If you are going home after surgery, a licensed bus driver/monitor must drive you home.? - NO public transportation without another adult if you receive anesthesia. - We recommend that an adult stay with you for 24 hours following discharge. - We also recommend that you do not drive, make important decision, drink alcoholic beverages, or take any drugs that were not prescribed by your health care provider for at least 24 hours after your discharge time. Follow any additional instructions given to you from your surgeon. Telephone instructions given to __Pedro Luis__and asked if any additional questions and then verbalized understanding. Patient advised to call surgeon office or pre surgery nurse liaison [phone] if any additional questions.
--- NOTE | 2025-03-19 07:03 | P.HP_ITS ---
History of Present Illness History of Present Illness Consent: Risks, benefits, and alternatives have been discussed and questions answered. Patient agrees to proceed with procedure. Chief complaint: right renal stone Narrative: Pedro Luis Barksdale is a 59 year old male w/ history recurrent urolithiasis. Recent KUB and CT scan show non-obstructing bilat. stones. After discussion with my partner he electes for ESWL Review of Systems Review of Systems: All systems reviewed & are unremarkable except as noted in HPI and below PMFSH Past Medical History Medical History (Updated 11/18/24 @ 15:37 by Jackie Stout APRN) PONV (postoperative nausea and vomiting) Adenomatous colon polyp Erectile dysfunction Controlled type 2 diabetes mellitus without complication Kidney stones GERD (gastroesophageal reflux disease) Umbilical hernia Sleep apnea Seasonal allergies Surgical History Surgical History History of lithotripsy (~2018) History of left shoulder replacement (~2016) Family History Family History Father Family history of malignant neoplasm Other Family history of kidney stones Hypertension Social History Social History (Updated 07/17/23 @ 15:26 by Abi Valentine MA) Smoking status: Never smoker Second hand tobacco smoke exposure: Yes Alcohol intake: current Drinks per week: 6 Substance use: never Substance use type: does not use Lack of Transportation: No Lack of Food: Never True Current Housing: I Have Housing Concerned About Future Housing: No Difficulty Paying Gas/Electric Bills: No Difficulty Paying for Meds: No Currently Unemployed: No Education: Associate Degree Difficulty w/ Childcare or Family Care: No Living arrangements: with family Additional living arrangements comments: and Mother Occupation/Education: occupation Gender identity (if verbalized by the patient): Male Sexual Orientation (if Verbalized by the Patient): Straight or Heterosexual Spiritual care concerns: No Agree to blood products: Yes Meds Home Medications and Allergies Home Medications ?Medication ?Instructions ?Recorded ?Confirmed ?Type multivitamin 1 tablet PO DAILY 11/05/19 03/17/25 History loratadine 10 mg tablet (Claritin) 10 mg PO DAILY 04/04/23 03/17/25 History omeprazole 20 mg tablet,delayed 20 mg PO DAILY 04/04/23 03/17/25 History release losartan 25 mg tablet 25 mg PO DAILY #90 tabs 08/28/24 03/17/25 Rx tamsulosin 0.4 mg capsule 0.4 mg PO DAILY #90 caps 08/28/24 03/17/25 Rx needle (disp) 18 G 18 gauge x 1 #100 ea 09/30/24 03/17/25 Rx (BD Regular Bevel Garfield) needle (disp) 25 gauge 25 gauge x #12 ea 10/07/24 03/17/25 Rx 1 (BD PrecisionGlide) syringe with needle, safety 3 mL #12 ea 10/21/24 03/17/25 Rx 25 gauge x 1 (BD Integra Syringe) topiramate 25 mg tablet See Rx Instructions .Route 11/18/24 03/17/25 Rx .COMPLEX #90 tabs testosterone cypionate 200 mg/mL 300 mg (1.5 mL) IM Q14D #10 mL 12/03/24 03/17/25 Rx intramuscular oil tirzepatide 10 mg/0.5 mL 10 mg (0.5 mL) subcut WEEKLY #2 mL 12/18/24 03/17/25 Rx subcutaneous pen injector (Mounjaro) Allergies Allergy/AdvReac Type Severity Reaction Status Date / Time No Known Allergies Allergy Verified 03/17/25 14:03 Exam Const: General: no acute distress Resp: Effort & Inspection: normal respiratory effort GI: Inspection: non-distended GI Palp: No abdominal tenderness and No Guarding due to palpation present (GI) Auscultation: normal bowel sounds Assessment and Plan Assessment and plan (1) Kidney stones: Code(s): N20.0 - Calculus of kidney Status: Acute Assessment and Plan: * Right ESWL
[2025-03-21] VITALS (7 sets, daily range): BP systolic 118–136; BP diastolic 70–91; PULSE 73–89; RESP 10–18; TEMP 36.1–36.8; O2SAT 96–100; BMI 26.4
--- NOTE | ~2025-03-21 | XR_ITS ---
XR abdomen/kub 1V 03/21/2025 09:40 Indication: Preop lithotripsy Procedure: KUB Comparison: Comparison to multiple prior studies sequentially, with oldest reviewed study dated 11/22. Findings: There are multiple bilateral renal stones with the largest cluster in the lower pole of the left kidney. Bowel gas pattern nonobstructive. There are multiple pelvic phleboliths. No acute osseo us abnormality. Impression: 1: Bilateral nephrolithiasis. Reviewed, dictated and finalized at location B. Impression: 1: Bilateral nephrolithiasis.
--- OUTSIDE RECORDS SUMMARY | 2025-03-21 02:28 | XMS_ITS | Continuity of Care Document ---
Author Organization [facility] Address [address] [place] [address] [address] [place] [address] Phone Care Team Providers Care Saw Grinder Name Role Phone Shiela CHURCHILL/Manasa HAYNES Jovana Unavailable Valerie vailable Procedures Procedure Date Therapeutic Exercise Therapeutic Activities Neuromuscular Re-Ed Manual Therapy Hot or Cold Pack Therapeutic Exercise Neuromuscular Re-Ed Manual Therapy Therapeutic Exercise Therapeutic Activities Manual Therapy Hot or Cold Pack Therapeutic Exercise Neuromuscular Re-Ed Manual Therapy Therapeutic Exercise Neuromuscular Re-Ed Manual Therapy Hot or Cold Pack Progress Note Therapeutic Exercise Neuromuscular Re-Ed Manual Therapy Therapeutic Exercise Neuromuscular Re-Ed Hot or Cold Pack Therapeutic Exercise Therapeutic Activities Manual Therapy Hot or Cold Pack Therapeutic Exercise Neuromuscular Re-Ed Hot or Cold Pack Therapeutic Exercise Therapeutic Activities Neuromuscular Re-Ed Manual Therapy Hot or Cold Pack Therapeutic Exercise Neuromuscular Re-Ed Manual Therapy Therapeutic Exercise Therapeutic Activities Neuromuscular Re-Ed Manual Therapy Hot or Cold Pack Therapeutic Exercise Therapeutic Activities Neuromuscular Re-Ed Manual Therapy Hot or Cold Pack Therapeutic Exercise Neuromuscular Re-Ed Manual Therapy Therapeutic Exercise Therapeutic Activities Manual Therapy Hot or Cold Pack Therapeutic Exercise Neuromuscular Re-Ed Manual Therapy Therapeutic Exercise Neuromuscular Re-Ed Hot or Cold Pack Therapeutic Exercise Therapeutic Activities Manual Therapy Hot or Cold Pack Therapeutic Exercise Neuromuscular Re-Ed Manual Therapy Therapeutic Exercise Therapeutic Activities Manual Therapy Hot or Cold Pack Progress Note Therapeutic Exercise Therapeutic Activities Manual Therapy Hot or Cold Pack Therapeutic Exercise Manual Therapy Hot or Cold Pack Therapeutic Exercise Therapeutic Activities Manual Therapy Hot or Cold Pack Progress Note Therapeutic Exercise Neuromuscular Re-Ed Manual Therapy Therapeutic Exercise Neuromuscular Re-Ed Manual Therapy Hot or Cold Pack Therapeutic Exercise Therapeutic Activities Manual Therapy Hot or Cold Pack Therapeutic Exercise Therapeutic Activities Manual Therapy Hot or Cold Pack Therapeutic Exercise Manual Therapy Therapeutic Exercise Manual Therapy Hot or Cold Pack Therapeutic Exercise Manual Therapy Hot or Cold Pack Therapeutic Exercise Manual Therapy Hot or Cold Pack Therapeutic Exercise Manual Therapy Hot or Cold Pack Therapeutic Exercise Manual Therapy Therapeutic Exercise Manual Therapy Hot or Cold Pack Progress Note Therapeutic Exercise Hot or Cold Pack Therapeutic Exercise Manual Therapy Hot or Cold Pack Therapeutic Exercise Manual Therapy Hot or Cold Pack Therapeutic Exercise Manual Therapy Hot or Cold Pack Therapeutic Exercise Therapeutic Exercise Manual Therapy Hot or Cold Pack Therapeutic Exercise Manual Therapy Hot or Cold Pack Therapeutic Exercise Manual Therapy Hot or Cold Pack Therapeutic Exercise Manual Therapy Hot or Cold Pack Therapeutic Exercise Manual Therapy Therapeutic Exercise Hot or Cold Pack Progress Note Therapeutic Exercise Manual Therapy Hot or Cold Pack Therapeutic Exercise Manual Therapy Hot or Cold Pack Therapeutic Exercise Manual Therapy Hot or Cold Pack Therapeutic Exercise Hot or Cold Pack Therapeutic Exercise Hot or Cold Pack Therapeutic Exercise Hot or Cold Pack Progress Note Therapeutic Exercise Hot or Cold Pack Therapeutic Exercise Hot or Cold Pack Therapeutic Exercise Manual Therapy Therapeutic Exercise Hot or Cold Pack Therapeutic Exercise Manual Therapy OT Evaluation High Complexity 7 Therapeutic Exercise Hot or Cold Pack PT Evaluation Moderate Complexity Therapeutic Exercise Advance Directives Directive Yes / No Effective Date File Name No Information Encounters Encounter Description Practice Location Reason(s) For Visit Diagnoses Date Provider Providers Copied on Encounter [facility], [address] [place] [address], [place], [place], [id number], tel:[phone] Jeramy No Information [address] [facility], [address], [place], [place], [facility], [place]. tel:[phone] [facility] [address] [place] [address], [id number], [place] tel:[phone] Jeramy No Information [address] [facility], [address], [place], [address], [place]. tel:[phone] Referring Provider: Rose Zabala, [address] [place] [address] [address], [place], [address]. tel:[phone] [facility] [address] [place] [address], [place], [place], [id number], [place] tel:[phone] Jeramy No Information [address] [facility], [address], [place], [address], [place]. tel:[phone] Referring Provider: Vu Preston, [address] [facility], [place], [address]. tel:[phone] [facility] [address] [place] [address], [place], [place], [id number], tel:[phone] Chamisal No Information [address] [facility], [address], [place], [address], [place]. tel:[phone] Referring Provider: Rose Zabala, [address] [place] [address] [address], [place], [address]. tel:[phone] [facility], [address] [place], [place] [address], [place], [place], [id number], [place] tel:[phone] Jeramy No Information Sep- [address] [facility], [address], [place], [address], [place]. tel:[phone] Referring Provider: Vu Preston, [address] [facility] [address] [facility] [address], [place], [address]. tel:[phone] [address], [place], [place], [id number], [place] tel:[phone] Jeramy No Information Sep- [address] [facility], [address], [place], [address], [place]. tel:[phone] Referring Provider: Rose Zabala, [address] [place] [address] [address], [place], [address]. tel:[phone] [address], [place], [place], [id number], [place] tel:[phone] Jeramy No Information Sep- Shiela Whaley. [address] [facility], [address], [place], [address], [place]. tel:[phone] Referring Provider: Vu Preston, [address] [facility] [address], [place], [address]. tel:[phone], [place], [place], [address], [place] tel:[phone] Jeramy No Information Dec-1 7 Eugenio Conn. . Referring Provider: Vu Preston [address], [place], [address]. tel:[phone] [facility], [address] [place], [place] [address] [address], [place], [place], [address], [place] tel:[phone] Jeramy No Information Dec-1 [address] [facility], [address], [place], [address], [place]. tel:[phone] Referring Provider: Rose Zabala, [address] [place] [address] [address], [place], [address]. tel:[phone] [address], [place], [place], [id number], [place] tel:[phone] Jeramy No Information Dec- 7 Eugenio Conn. . Referring Provider: Vu Preston, [address] [place] [address], [place], [address]. tel:[phone] [facility] [address] [place] [address], [id number], [place] tel:[phone] Jeraym No Information Sep-1 7 Cyndie Gonsalez. [address] [place] [address], [address], [place], [address], [place]. tel:[phone] Referring Provider: Rose Zabala, [address] [place] [address] [address], [place], [address]. tel:[phone] [facility] [address] [place], [place] [address], [place], [place], [id number], [place] tel:[phone] Jeramy No Information Dec-0 [address] [facility], [address], [place], [address], [place]. tel:[phone] Referring Provider: Vu Preston, [id number] [place] [address], [place], [address]. tel:[phone] [facility], [address] [place], [place] [address] [address], [place], [id number], [place] tel:[phone] Chamisal No Information Dec-0 [address] [facility], [address], [place], [address], [place]. tel:[phone] Referring Provider: Rose Zabala, [address] [place] [address] [address], [place], [address]. tel:[phone] [address], [place], [place], [id number], [place] tel:[phone] Jeramy No Information Dec-0 5201 7 Cyndie Gonsalez. [address] [place] [address], [address], [place], [address], [place]. tel:[phone] Referring Provider: Rose Zabala, [address] [place] [address] [address], [place], [address]. tel:[phone] [address] [facility], [place], [place], [id number], [place] tel:[phone] Chamisal No Information Dec-0 7 Kuo Jovana. [address] [place] [address], [address], [place], [address], [place]. tel:[phone] Referring Provider: Vu Preston, [address] [facility], [place], [address]. tel:[phone] [address], [place], [place], [address], [place] tel:[phone] Chamisal No Information Aug-3 0-201 7 Cyndie Gonsalez. [address] [place] [address], [address], [place], [address], [place]. tel:[phone] Referring Provider: Rose Zabala, [address] [place] [address] [address], [place], [address]. tel:[phone] [address], [place], [id number], [place] tel:[phone] Jeramy No Information Nov-3 0-201 7 Kuo Jovana. [address] [place] [address], [address], [place], [address], [place]. tel:[phone] Referring Provider: Vu Preston, [address], [place], [address]. tel:[phone] [facility] [address] [place], [place] [address] [address], [place], [id number], [place] tel:[phone] Chamisal No Information Nov-2 7 Eugenio Conn. . Referring Provider: Vu Preston, [address] [facility] [address], [place], [address]. tel:[phone] [facility] [address] [place], [place] [address] [address], [place], [id number], [place] tel:[phone] Chamisal No Information 2 [address] [facility], [address], [place], [address], [place]. tel:[phone] Referring Provider: Rose Zabala [address] [place] [address] [address], [place], [address]. tel:[phone] [place] [address], [id number], [place] tel:[phone] Chamisal No Information 2 [address] [facility], [address], [place], [address], [place]. tel:[phone] Referring Provider: Vu Preston, [address], [place], [address]. tel:[phone] [address] [place] [address], [id number], [place] tel:[phone] Jeramy No Information Nov2 [address] [facility], [address], [place], [address], [place]. tel:[phone] Referring Provider: Rose Zabala [address] [place] [address] [address], [place], [address]. tel:[phone] [facility] [address] [place] [address], [id number], [place] tel:[phone] Jeramy No Information 7 August-Naresh Denisela. [address] [facility], [address], [place], [address], [place]. tel:[phone] Referring Provider: Rose Zabala, [address] [place] [address] [address], [place], [address]. tel:[phone], [place], [place], [id number], [place] tel:[phone] Jeramy No Information [address] [facility], [address], [place], [address], [place]. tel:[phone] Referring Provider: Vu Preston [address] [place] [address], [address]. tel:[phone], [id number], [place] tel:[phone] Chamisal No Information 7 Mata-Naresh Gonsalez. [address] [place] [address], [address], [place], [address], [place]. tel:[phone] Referring Provider: Rose Zabala, [address] [place] [address] [address], [place], [address]. tel:[phone] [address], [place], [id number], [place] tel:[phone] Jeramy No Information 7 Kuo Jovana. [address] [place] [address], [address], [place], [address], [place]. tel:[phone] Referring Provider: Vu Preston [address] [place] [address], [address]. tel:[phone] [address] [address], [place], [id number], [place] tel:[phone] Chamisal No Information 0 7 Kuo Jovana. [address] [place] [address], [address], [place], [address], [place]. tel:[phone] Referring Provider: Vu Preston, [address] [facility] [address], [place], [address]. tel:[phone], [id number], [place] tel:[phone] Jeramy No Information Aug-0 7 Cyndie Gonsalez. [address] [place] [address], [address], [place], [address], [place]. tel:[phone] Referring Provider: Rose Vj, [address] [place] [address] [address], [place], [address]. tel:[phone], [id number], [place] tel:[phone] Chamisal No Information 3 0 7 Cyndie Gonsalez. [address] [place] [address], [address], [place], [address], [place]. tel:[phone] Referring Provider: Rose Hinsonuart, [address] [place] [address] [address], [place], [address]. tel:[phone], [id number], [place] tel:[phone] Chamisal No Information 3 0 7 Kuo Jovana. [address] [place] [address], [address], [place], [address], [place]. tel:[phone] Referring Provider: Vu Preston, [address] [facility] [address], [place], [address]. tel:[phone], [id number], [place] tel:[phone] Jeramy No Information Jul-2 7 Kuo Jovana. [address] [place] [address], [address], [place], [address], [place]. tel:[phone] Referring Provider: Vu Preston, [address] [facility], [place], [address]. tel:[phone] [facility] [address] [place] [address], [id number], [place] tel:[phone] Chamisal No Information Cyndie Gonsalez. [address] [facility], [address], [place], [address], [place]. tel:[phone] Referring Provider: Rose Zabala, [address] [place] [address] [address], [place], [address]. tel:[phone], [id number], [place] tel:[phone] Jeramy No Information Cyndie Gonsalez. [address] [facility], [address], [place], [address], [place]. tel:[phone] Referring Provider: Rose Zabala [address] [place] [address] [address], [place], [address]. tel:[phone], [id number], [place] tel:[phone] Chamisal No Information [address] [facility], [address], [place], [address], [place]. tel:[phone] Referring Provider: Vu Preston, [address] [facility], [place], [address]. tel:[phone] [address], [place], [id number], [place] tel:[phone] Chamisal No Information Cyndie Gonsalez. [address] [facility], [address], [place], [address], [place]. tel:[phone] Referring Provider: Rose Zabala [address] [place] [address] [address], [place], [address]. tel:[phone] [facility], [address], [place], [place], [id number], [place] tel:[phone] Chamisal No Information [address] [facility], [address], [place], [facility], [place]. tel:[phone] Referring Provider: Vu Preston, [address] [place] [address], [place], [address]. tel:[phone] [facility] [address], [place], [id number], [place] tel:[phone] Jeramy No Information 7 Cyndie Gonsalez. [address] [place] [address], [address], [place], [facility], [place]. tel:[phone] Referring Provider: Rose Zabala, [address] [place] [address] [address], [place], [address]. tel:[phone] [facility] [address] [address], [place], [id number], [place] tel:[phone] Jeramy No Information Shiela Whaley. [address] [place] [address], [address], [place], [address], [place]. tel:[phone] Referring Provider: Vu Preston, [address] [place] [address], [place], [address]. tel:[phone] [facility] [address], [place], [id number], [place] tel:[phone] Chamisal No Information Cyndie Gonsalez. [address] [place] [address], [address], [place], [address], [place]. tel:[phone] Referring Provider: Rose Zabala, [address] [place] [address] [address], [place], [address]. tel:[phone] [facility] [address] [address], [place], [id number], [place] tel:[phone] Chamisal No Information Oct-1 2-201 7 Kuo Jovana. [address] [place] [address], [address], [place], [address], [place]. tel:[phone] Referring Provider: Vu Preston, [address] [facility] [address], [place], [address]. tel:[phone], [id number], [place] tel:[phone] Jeramy No Information Oct-0 9-201 7 Nico Shaffer. . Referring Provider: Rose Zabala, [address] [place] [address] [address], [place], [address]. tel:[phone], [id number], [place] tel:[phone] Chamisal No Information Oct-0 9201 7 Kuo Jovana. [address] [place] [address], [address], [place], [address], [place]. tel:[phone] Referring Provider: Vu Preston [address] [place] [address] Road, [place], [address]. tel:[phone], [id number], [place] tel:[phone] Jeramy No Information Jul-0 5-201 7 Cyndie Gonsalez. [address] [place] [address], [address], [place], [address], [place]. tel:[phone] Referring Provider: Rose Zabala [address] [place] [address] [address], [place], [address]. tel:[phone], [id number], [place] tel:[phone] Jeramy No Information Oct-0 5201 7 Kuo Jovana. [address] [place] [address], [address], [place], [address], [place]. tel:[phone] Referring Provider: Vu Preston [address] [facility], [place], [address]. tel:[phone] [address], [place], [place], [id number], [place] tel:[phone] Chamisal No Information 0 7 Cyndie Gonsalez. [address] [place] [address], [address], [place], [address], [place]. tel:[phone] Referring Provider: Rose Zabala, [address] [place] [address] [address], [place], [address]. tel:[phone] [address] [address], [place], [id number], [place] tel:[phone] Jeramy No Information 0 7 Shiela Whaley. [address] [place] [address], [address], [place], [address], [place]. tel:[phone] Referring Provider: Vu Preston [address] [place] [address], [place], [address]. tel:[phone] [place] [address], [id number], [place] tel:[phone] Jeramy No Information 2 7 Cyndie Gonsalez. [address] [place] [address], [address], [place], [address], [place]. tel:[phone] Referring Provider: Rose Zabala, [address] [place] [address] [address], [place], [address]. tel:[phone] [address] [address], [place], [id number], [place] tel:[phone] Jeramy No Information 2 7 Shiela Whaley. [address] [place] [address], [address], [place], [address], [place]. tel:[phone] Referring Provider: Vu Preston, [address] [facility] [address], [place], [address]. tel:[phone] [address], [place], [id number], [place] tel:[phone] Chamisal No Information Sep-2 [address] [facility], [address], [place], [address], [place]. tel:[phone] Referring Provider: Rose Zabala, [address] [place] [address] [address], [place], [address]. tel:[phone], [id number], [place] tel:[phone] Chamisal No Information Sep-2 7 Shiela Whaley. [address] [place] [address], [address], [place], [address], [place]. tel:[phone] Referring Provider: Vu Preston [address] [place] [address], [place], [address]. tel:[phone], [id number], [place] tel:[phone] Chamisal No Information Sep-2 7 Cyndie Gonsalez. [address] [place] [address], [address], [place], [address], [place]. tel:[phone] Referring Provider: Rose Zabala, [address] [place] [address] [address], [place], [address]. tel:[phone], [id number], [place] tel:[phone] Jeramy No Information Sep-2 [address] [facility], [address], [place], [address], [place]. tel:[phone] Referring Provider: Vu Preston [address] [place] [address], [address]. tel:[phone], [id number], [place] tel:[phone] Jeramy No Information Sep-1 [address] [facility], [address], [place], [address], [place]. tel:[phone] Referring Provider: Vu Preston, [address] [place] [address], [place], [address]. tel:[phone] [facility], [address] [place] [address], [id number], [place] tel:[phone] Chamisal No Information Sep- Cyndie Gonsalez. [address] [facility], [address], [place], [address], [place]. tel:[phone] Referring Provider: Rose Zabala, [address] [place] [address] [address], [place], [address]. tel:[phone], [id number], [place] tel:[phone] Jeramy No Information Sep- Cyndie Gonsalez. [address] [place] [address], [address], [place], [address], [place]. tel:[phone] Referring Provider: Rose Zabala [address] [place] [address] [address], [place], [address]. tel:[phone] [facility] [address] [place], [place] [address] [facility], [place], [place], [id number], [place] tel:[phone] Chamisal No Information Sep- Shiela Whaley. [address] [facility], [address], [place], [address], [place]. tel:[phone] Referring Provider: Vu Preston, [address] [facility] [address], [place], [address]. tel:[phone], [id number], [place] tel:[phone] [place] No Information Sep- Cyndie Gonsalez. [address] [facility], [address], [place], [address], [place]. tel:[phone] Referring Provider: Rose Zabala, [address] [place] [address] [address], [place], [address]. tel:[phone], [id number], tel:[phone] Jeramy Unsp dislocation of left ulnohumeral joint, subs encntr Sep-1 2201 7 Shiela Whaley. [address] [place] [address], [facility] [address], [place], [facility], [place]. tel:[phone] Referring Provider: Vu Preston [address] [place] [address], [place], [address]. tel:[phone], [id number], tel:[phone] [place] Pain in left elbowStiffness of left elbow, not elsewhere classifiedEffusi on, left elbow Sep-0 6 7 Shiela Whaley. [address] [place] [address], [facility] [address], [place], [facility], [place]. tel:[phone] Referring Provider: Vu Preston, [address] [place] [address], [place], [address]. tel:[phone], [id number], [place] tel:[phone] Jeramy Pain in left shoulderStiffnes s of left shoulder, not elsewhere classifiedOth symptoms and signs involving the musculoskeletal systemMyalgiaPre sence of left artificial shoulder jointOth disp fx of upper end l humer, subs for fx w routn heal Sep-0 6- 7 Cyndie Gonsalez. [address] [place] [address], [facility] [address], [place], [address], [place]. tel:[phone] Referring Provider: Rose Zabala, [address] [place] [address] [address], [place], [address]. tel:[phone] Family History Family Member Type Diagnosis Age At Onset No Information Payers Payer name Insurance type Covered green party ID Authoriza tion(s) [facility] [id number] Social History Type Description Quantity Date Captured Comments Sex Male Smoking Status No Information Chief Complaint And Reason For Visit No Information Reason For Referral Reason For Referral No Information History Of Present Illness Encounter Date Complaint History Of Prese nt Illness No Information Functional Status Date Functional Assessmen t No Information Instructions Date Instruction Additional Infor mation No Information Assessments Type Assessment Date No Information Patient Care Teams Name Effective Dates (start - stop) Status Members No Information
--- OUTSIDE RECORDS SUMMARY | 2025-03-21 02:28 | XMS_ITS | Referral Summary ---
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 Pulse 86 10/12/2017 2:49 PM 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 Temperature - - Respiratory Rate - - Oxygen Saturation - - Inhaled Oxygen Concentration - - Weight 100.2 kg (220 lb 12.8 oz) 10/12/2017 2:49 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
--- OUTSIDE RECORDS SUMMARY | 2025-03-21 02:28 | XMS_ITS | Clinical Summary ---
Author Organization [facility] Address [address] [place] [address] Care Team Providers Care Physical Plant Employee Name Role Phone Kelton Pleitez MD Primary Care Provider [phone]- [phone] Allergies No known active allergies Medications omeprazole [...] pain 40 tablet 7 Active FLUZONE QUAD 7190-2615, PF, 60 mcg (15 mcg x 4)/0.5 [...] on file Legal Sex Male 2:41 PM E M ASSEMBLER Gender Identity Not on file Sexual Orientation Not on file Obstetrics History Last Filed Vital Signs Vital Sign Reading Time Taken Comments Blood Pressure 137/91 10/12/2017 2:49 PM E M ASSEMBLER Pulse 86 10/12/2017 2:49 PM E M ASSEMBLER Temperature - - Respiratory Rate - - Oxygen Saturation - - Inhaled Oxygen Concentration - - Weight 100.2 kg (220 lb 12.8 oz) 10/12/2017 2:49 PM E M ASSEMBLER Height 180.3 cm (5' 11) 10/12/2017 2:49 PM E M ASSEMBLER Body Mass Index 30.8 10/12/2017 2:49 PM E M ASSEMBLER Plan of Treatment Not on file Insurance [facility] CHOICE PLUS Care Teams Physical Plant Employee Relationship Specialty Start Date End Date Kelton Pleitez MD [address] [place] [address] PCP - General 05/23/17
--- OUTSIDE RECORDS SUMMARY | 2025-03-21 02:28 | XMS_ITS | Clinical Summary ---
Author Organization [facility] Address [address] [place] [address] Phone Care Team Providers Care Bulk Plant Supervisor Name Role Phone Dillon Pleitez MD Primary Care Provider [phone] Allergies No known active allergies Medications aspirin 81 MG Chewable Tablet Take 1 Tab by mouth daily. 100 Tab 7 Active ondansetron (ZOFRAN-ODT) 4 MG TABLET DISPERSIBLE Take 1 Tab by mouth every 8 hours as needed for up to 20 doses. 20 Tab 7 Active Additional Information Patient not taking.Reported on 07/15/2019 Saw [employer], Serenoa repens, (SAW PALMETTO PO) Take 1 [...] 119.3 kg (263 lb) 08/19/2021 9:00 AM CUPOLA OPERATOR Height 180.3 cm (5' 11) 08/19/2021 9:00 AM CUPOLA OPERATOR Body Mass Index 36.68 08/19/2021 9:00 AM CUPOLA OPERATOR Plan of Treatment Health Maintenance Due Date [...] this topic Medical Devices Implanted Type Area Carpenter Form Device Identifier Shelf Expiration Date Model / Serial / Lot Angioseal Vip 6fr - [id number] Implanted:Qty: 1 on 03/30/2017 by Lorelei Nelson MD at [facility] IMPLANT Right: Groin ST SKIP / ATRIAL FIB 07/08/2017 [id number] / / [id number] Advance Directives * Full Code (Latest Code Status on File) Date Activated Date Inactivated Comments 03/27/2017 4:38 PM 03/30/2017 6:29 PM CPR-Full Jet atment: FULL ARREST: Attempt Resuscitation/CPR wit intubation and mechanical ventilation. PRE-ARREST: Use entire range of life support measures to stabilize the patient. Care Teams Bulk Plant Supervisor Relationship Specialty Start Date End Date Dillon Pleitez MD [address] [place] [id number] PCP - General Family Medicine 03/27/17
--- NOTE | 2025-03-21 06:17 | WPDHPUPDATE1 ---
History and Physical Update Update Date/Time: 03/21/25 06:17 History and Physical has been reviewed, including an updated exam of the patient. There are NO changes in the patient's condition. Risks, benefits, and alternatives have been discussed and questions answered. Patient agrees to proceed with procedure.
--- NOTE | 2025-03-21 10:04 | P.PNAN_ITS ---
Anes - Initial Pre Proc Eval Procedure: Operation Date: 03/21/25 11:30 Proposed Procedures p Right Extracorporeal Shock Wave Lithotripsy - Tevin Mixon MD Date/Time: 03/21/25 10:04 Surgeon: Tevin Mixon MD Pre Op Diagnosis: right renal stone Patient Data Age: 59 Gender: M Height: 1.8 m Weight: 87.7 kg Allergies Allergy/AdvReac Type Severity Reaction Status Date / Time No Known Allergies Allergy Verified 03/17/25 14:03 Home Medications ?Medication ?Instructions ?Recorded ?Confirmed ?Type multivitamin 1 tablet PO DAILY 11/05/19 03/17/25 History loratadine 10 mg tablet (Claritin) 10 mg PO DAILY 04/04/23 03/17/25 History omeprazole 20 mg tablet,delayed 20 mg PO DAILY 04/04/23 03/17/25 History release losartan 25 mg tablet 25 mg PO DAILY #90 tabs 08/28/24 03/17/25 Rx tamsulosin 0.4 mg capsule 0.4 mg PO DAILY #90 caps 08/28/24 03/17/25 Rx needle (disp) 18 G 18 gauge x 1 #100 ea 09/30/24 03/17/25 Rx (BD Regular Bevel [place]) needle (disp) 25 gauge 25 gauge x #12 ea 10/07/24 03/17/25 Rx 1 (BD PrecisionGlide) syringe with needle, safety 3 mL #12 ea 10/21/24 03/17/25 Rx 25 gauge x 1 (BD Integra Syringe) topiramate 25 mg tablet See Rx Instructions .Route 11/18/24 03/17/25 Rx .COMPLEX #90 tabs testosterone cypionate 200 mg/mL 300 mg (1.5 mL) IM Q14D #10 mL 12/03/24 03/17/25 Rx intramuscular oil tirzepatide 10 mg/0.5 mL 10 mg (0.5 mL) subcut WEEKLY #2 mL 12/18/24 03/17/25 Rx subcutaneous pen injector (Mounjaro) Patient hx anesthesia problems: post op nausea/vomiting Family hx anesthesia problems: none Results Review: All pre-operative results and documents have been reviewed as part of the pre- operative evaluation. [facility] Past Medical History Medical History PONV (postoperative nausea and vomiting) Adenomatous colon polyp Erectile dysfunction Controlled type 2 diabetes mellitus without complication Kidney stones GERD (gastroesophageal reflux disease) Umbilical hernia Sleep apnea Seasonal allergies Surgical History Surgical History History of lithotripsy (~2019) History of left shoulder replacement (~2017) Family History Family History Father Family history of malignant neoplasm Other Family history of kidney stones Hypertension Social History Social History Smoking status: Never smoker Second hand tobacco smoke exposure: Yes Alcohol intake: current Drinks per week: 6 Substance use: never Substance use type: does not use Lack of Transportation: No Lack of Food: Never True Current Housing: I Have Housing Concerned About Future Housing: No Difficulty Paying Gas/Electric Bills: No Difficulty Paying for Meds: No Currently Unemployed: No Education: Associate Degree Difficulty w/ Childcare or Family Care: No Living arrangements: with family Additional living arrangements comments: and Mother Occupation/Education: occupation Gender identity (if verbalized by the patient): Male Sexual Orientation (if Verbalized by the Patient): Straight or Heterosexual Spiritual care concerns: No Agree to blood products: Yes Anes - Eval Final PreProcedure Day of Procedure 03/21/25 10:04 Patient weight: overweight Heart: regular rate and rhythm Lungs: clear to auscultation Airway: Mallampati scale class II Neurological: alert and oriented Last oral intake: >/= 8 hours ASA classification: III Emergent: no Anesthetic plan: proceed Anesthesia type and monitoring: general LMA and standard monitoring Results Review: All pre-operative results and documents have been reviewed as part of the pre- operative evaluation. Informed Consent: The patient's anesthetic plan and its attendant risks and benefits were discussed with the patient/family/POA. Questions were solicited and answers provided to the satisfaction of the patient/family/POA.
[2025-03-21 10:26] LABS: Glucose Point of Care 88 mg/dl (65-105)
[2025-03-21] MEDS: ceFAZolin 2 GM/D5W 50 ML 2 GM/50 ML BAG IVPB (11:11)
--- NOTE | 2025-03-21 11:42 | W.PM.PROC2 ---
Procedure Note - Detailed Date of Procedure 03/21/25 Pre-op Diagnosis Bilateral renal stones Post-op Diagnosis Same Procedure Performed Left ESWL Surgeon Tevin Mixon MD Anesthesia General Description of Procedure The patient was brought to the operative suite where he was placed in the supine position on the Dornier lithotripsy table. Patient has 6 to 7 stones in his left kidney. Several of them are contiguous. We treated 3 separate sites of contiguous stones each with 29012 shocks.. A total of 2500 shocks were delivered at a power setting of 4. There appeared to be good fragmentation of the stone. The patient tolerated the procedure well and was taken to the recovery room in good condition. Drains No Pathology None sent Complications No immediate complications Condition Stable
[2025-03-21] MEDS: LACTATED RINGERS 1,000 ML 30 ML IV CONT (11:56)
[2025-03-21 12:11] LABS: Glucose Point of Care 82 mg/dl (65-105)
[2025-03-21] MEDS: fentaNYL CITRATE INJ (*CRX) 100 MCG/2 ML VIAL 25 MCG IV PUSH ×4 (12:31→12:42)
[2025-03-21] MEDS: oxyCODONE HCL (*CRX) 5 MG TAB IR PO (13:10)
== END 2025-03-21 13:45 | disposition home or self-care (01) ==
PROVIDERS: PCP Nurse Practitioner Adult Health; Visit Provider Urology
PROC: (CPT 50590; principal; 2025-03-21 11:30)
DX: N20.0 Calculus of kidney (principal); E11.9 Type 2 diabetes mellitus without complications; K21.9 Gastro-esophageal reflux disease without esophagitis; N52.9 Male erectile dysfunction, unspecified; G47.30 Sleep apnea, unspecified; Z79.85 Long-term (current) use of injectable non-insulin antidiabetic drugs; Z98.890 Other specified postprocedural states; Z86.0100 Personal history of colon polyps, unspecified; Z80.9 Family history of malignant neoplasm, unspecified
CPT/HCPCS: 50590; 74018; 82948; A9270; J0690; J1100; J2405; J2704; J3010; J7120

== ENCOUNTER 2025-05-22 06:54 | Outpatient (CLI) | payer OTHER, SELFPAY ==
--- OUTSIDE RECORDS SUMMARY | 2025-05-22 06:57 | XMS_ITS | Clinical Summary ---
Author Organization [facility] Address [address] [place] [address] Phone Care Team Providers Care Operations Welder Name Role Phone Dillon Pleitez MD Primary Care Provider [phone] Allergies No known active allergies Medications aspirin 81 MG Chewable Tablet Take 1 Tab by mouth daily. 100 Tab 7 Active ondansetron (ZOFRAN-ODT) 4 MG TABLET DISPERSIBLE Take 1 Tab by mouth every 8 hours as needed for up to 20 doses. 20 Tab 7 Active Additional Information Patient not taking.Reported on 07/15/2019 Saw [place], Serenoa repens, (SAW PALMETTO PO) Take 1 [...] 119.3 kg (263 lb) 08/19/2021 9:00 AM LICENSED PESTICIDE APPLICATOR Height 180.3 cm (5' 11) 08/19/2021 9:00 AM LICENSED PESTICIDE APPLICATOR Body Mass Index 36.68 08/19/2021 9:00 AM LICENSED PESTICIDE APPLICATOR Plan of Treatment Health Maintenance Due Date [...] ( season) 2024 01/18/2021, 12/28/2020 Influenza Immunization (#1) 2025 07/26/2017 Respiratory Syncytial Virus (RSV) Immunization [...] this topic Medical Devices Implanted Type Area Alliance Consultant Device Identifier Shelf Expiration Date Model / Serial / Lot Angioseal Vip 6fr - [id number] Implanted:Qty: 1 on 03/30/2017 by Lorelei Nelson MD at [facility] IMPLANT Right: Groin ST SKIP / ATRIAL FIB 07/08/2017 [id number] / / [id number] Advance Directives * Full Code (Latest Code Status on File) Date Activated Date Inactivated Comments 03/27/2017 4:38 PM 03/30/2017 6:29 PM CPR-Full Jet atment: FULL ARREST: Attempt Resuscitation/CPR wit intubation and mechanical ventilation. PRE-ARREST: Use entire range of life support measures to stabilize the patient. Care Teams Operations Welder Relationship Specialty Start Date End Date Dillon Pleitez MD [address] [place] [address] PCP - General Family Medicine 03/27/17
--- OUTSIDE RECORDS SUMMARY | 2025-05-22 06:57 | XMS_ITS | Clinical Summary ---
Author Organization [facility] Address [address] [place] [address] Care Team Providers Care Government Service Executive Name Role Phone Kelton Pleitez MD Primary Care Provider [phone] Allergies No known active allergies Medications omeprazole [...] pain 40 tablet 7 Active FLUZONE QUAD 6067-0057, PF, 60 mcg (15 mcg x 4)/0.5 [...] on file Legal Sex Male 2:41 PM SCHEDULING CLERK Gender Identity Not on file Sexual Orientation Not on file Obstetrics History Last Filed Vital Signs Vital Sign Reading Time Taken Comments Blood Pressure 137/91 10/12/2017 2:49 PM SCHEDULING CLERK Pulse 86 10/12/2017 2:49 PM SCHEDULING CLERK Temperature - - Respiratory Rate - - Oxygen Saturation - - Inhaled Oxygen Concentration - - Weight 100.2 kg (220 lb 12.8 oz) 10/12/2017 2:49 PM SCHEDULING CLERK Height 180.3 cm (5' 11) 10/12/2017 2:49 PM SCHEDULING CLERK Body Mass Index 30.8 10/12/2017 2:49 PM SCHEDULING CLERK Plan of Treatment Not on file Insurance [facility] CHOICE PLUS [facility] H[facility]/PPO Address: [facility] [id number] [place] [address] Care Teams Government Service Executive Relationship Specialty Start Date End Date Kelton Pleitez MD [address] [place] [address] PCP - General 05/23/17
[2025-05-22 18:45] LABS: Alanine Aminotransferase 20 U/L (6-50); Albumin Level 4.3 g/dL (3.5-5.1); Alkaline Phosphatase 54 U/L (38-126); Anion Gap 8 mmol/L (4-12); Aspartate Amino Transferase 53 U/L (17-59); Bilirubin,Total 1.2 mg/dL (0.2-1.3); Blood Urea Nitrogen 17 mg/dL (9-20); Calcium 9.5 mg/dL (8.4-10.2); Carbon Dioxide 24 mmol/L (22-30); Chloride 103 mmol/L (98-107); Cholesterol 158 mg/dL (0-200); Estimated Glomerular Filt Rate 59; Glucose 98 mg/dL (65-110); HDL Direct 39 mg/dL; Potassium 4.1 mmol/L (3.4-5.0); Sodium 135 mmol/L (137-145); Total Protein 7.7 g/dL (6.3-8.2); Triglycerides 72 mg/dL (<150)
[2025-05-22 19:10] LABS: Hematocrit 48.2 % (42.0-52.0); Hemoglobin 15.5 g/dL (14.0-18.0); Mean Corpuscular HGB Conc 32.2 g/dl (32-36); Mean Corpuscular Hemoglobin 30.3 pg (26-34); Mean Corpuscular Volume 94.3 fl (80-100); Platelet Count Result 251 k/mm3 (150-375); Red Blood Count 5.11 M/mm3 (4.6-6.20); White Blood Count 5.9 K/mm3 (4.5-10.0)
[2025-05-22 19:23] LABS: Prostate Specific Antigen 0.5 ng/mL (< OR = 4.0)
[2025-05-22 19:41] LABS: Vitamin B12 553.0 pg/mL (239-931)
[2025-05-22 20:10] LABS: Hemoglobin A1C 5.1 % (<5.7)
== END 2025-05-22 06:55 | disposition home or self-care (01) ==
LOC: ANHBWCLAB 06:55
PROVIDERS: PCP Nurse Practitioner Adult Health; Visit Provider Nurse Practitioner Adult Health
DX: E11.9 Type 2 diabetes mellitus without complications (principal); I10 Essential (primary) hypertension; Z51.81 Encounter for therapeutic drug level monitoring; Z12.5 Encounter for screening for malignant neoplasm of prostate
CPT/HCPCS: 36415; 80053; 80061; 82565; 82607; 83036; 84153; 85027; G0103

== ENCOUNTER 2025-06-10 10:37 | Outpatient (CLI) | payer OTHER, SELFPAY ==
--- NOTE | ~2025-06-10 | XR_ITS ---
EXAM/ PROCEDURE: XR hip RT min 2V - 06/10/2025 10:39 CDT HISTORY: 59 years old Male with M25.559 - Pain in unspecified hip COMPARISON: None available TECHNIQUE: Three view(s) FINDINGS/ IMPRESSION: There are no fractures or dislocations.Joint space narrowing, subchondral sclerosis, subchondral cyst formation and osteophyte formation, compatible with mild osteoarthritis. Reviewed, dictated and finalized at location N.
--- OUTSIDE RECORDS SUMMARY | 2025-06-10 11:10 | XMS_ITS | Clinical Summary ---
Author Organization [facility] Address [address] [place] [address] Phone Care Team Providers Care Optical Instrument Assembler Name Role Phone Dillon Pleitez MD Primary Care Provider [phone] Allergies No known active allergies Medications aspirin 81 MG Chewable Tablet Take 1 Tab by mouth daily. 100 Tab 7 Active ondansetron (ZOFRAN-ODT) 4 MG TABLET DISPERSIBLE Take 1 Tab by mouth every 8 hours as needed for up to 20 doses. 20 Tab 7 Active Additional Information Patient not taking.Reported on 07/15/2019 Saw [place], Serenoa repens, (SAW PALMETTO PO) Take 1 [...] 119.3 kg (263 lb) 08/19/2021 9:00 AM VENDOR MANAGEMENT ASSOCIATE Height 180.3 cm (5' 11) 08/19/2021 9:00 AM VENDOR MANAGEMENT ASSOCIATE Body Mass Index 36.68 08/19/2021 9:00 AM VENDOR MANAGEMENT ASSOCIATE Plan of Treatment Health Maintenance Due Date Last Done Comments Hepatitis C Virus (HCV) Screening 1966 TdaP Immunization 1966 Hepatitis B Immunization (1 of 3 - 19+ 3-dose series) 1985 Cologuard 2011 Immunochemical Fecal Occult Blood 2011 Pneumococcal Immunization (5 0+ years) (1 of 1 - PCV) 2016 Zoster Immunization (1 of 2) 2016 Colonoscopy 05/07/2021 05/07/2018 Colorectal Cancer Screening 05/07/2021 Influenza Immunization (#1) 2025 07/26/2017 SARS-COV-2 Immunization ( season) 2025 01/18/2021, 12/28/2020 Respiratory Syncytial Virus (RSV) Immunization [...] this topic Medical Devices Implanted Type Area Shoe Stainer Device Identifier Shelf Expiration Date Model / Serial / Lot Angioseal Vip 6fr - [id number] Implanted:Qty: 1 on 03/30/2017 by Lorelei Nelson MD at [facility] IMPLANT Right: Groin ST SKIP / ATRIAL FIB 07/08/2017 [id number] / / [id number] Advance Directives * Full Code (Latest Code Status on File) Date Activated Date Inactivated Comments 03/27/2017 4:38 PM 03/30/2017 6:29 PM CPR-Full Jet atment: FULL ARREST: Attempt Resuscitation/CPR wit intubation and mechanical ventilation. PRE-ARREST: Use entire range of life support measures to stabilize the patient. Care Teams Optical Instrument Assembler Relationship Specialty Start Date End Date Dillon Pleitez MD [address] [address] PCP - General Family Medicine 03/27/17
--- OUTSIDE RECORDS SUMMARY | 2025-06-10 11:10 | XMS_ITS | Clinical Summary ---
Author Organization [facility] Address [address] [place] [address] Care Team Providers Care Reserve Operator Name Role Phone Kelton Pleitez MD Primary Care Provider [phone] Allergies No known active allergies Medications omeprazole [...] pain 40 tablet 7 Active FLUZONE QUAD 2761-2173, PF, 60 mcg (15 mcg x 4)/0.5 [...] on file Legal Sex Male 2:41 PM INDUSTRIAL RECRUITER Gender Identity Not on file Sexual Orientation Not on file Obstetrics History Last Filed Vital Signs Vital Sign Reading Time Taken Comments Blood Pressure 137/91 10/12/2017 2:49 PM INDUSTRIAL RECRUITER Pulse 86 10/12/2017 2:49 PM INDUSTRIAL RECRUITER Temperature - - Respiratory Rate - - Oxygen Saturation - - Inhaled Oxygen Concentration - - Weight 100.2 kg (220 lb 12.8 oz) 10/12/2017 2:49 PM INDUSTRIAL RECRUITER Height 180.3 cm (5' 11) 10/12/2017 2:49 PM INDUSTRIAL RECRUITER Body Mass Index 30.8 10/12/2017 2:49 PM INDUSTRIAL RECRUITER Plan of Treatment Not on file Insurance [facility] CHOICE PLUS [facility] HMO/PPO Address: [facility] [id number] [place] [address] Care Teams Reserve Operator Relationship Specialty Start Date End Date Kelton Pleitez MD [address] [place] [address] PCP - General 05/23/17
== END 2025-06-10 10:38 | disposition home or self-care (01) ==
LOC: ANHBWCIMG 10:38
PROVIDERS: PCP Nurse Practitioner Adult Health; Visit Provider Nurse Practitioner Adult Health
DX: M25.551 Pain in right hip (principal)
CPT/HCPCS: 73502